=== PATIENT | female | born 1990 | race Caucasian/White ===

== ENCOUNTER 2016-06-10 15:31 | Emergency (ER) | payer BC ==
[2016-06-10] MEDS ORDERED: ONDANSETRON 4 MG TAB.RAPDIS PO ONE (16:23)
--- NOTE | 2016-06-10 16:23 | ER Document Report ---
ED Medical Screen (RME) - General Stated Complaint: UPPER ABDOMINAL PAIN Notes: patient is a 26 year old female epigastric abdominal pain, diarrhea over the course of the day tolerating PO denies GI diagnosis due for Gi follow up this coming Monday I have greeted and performed a rapid initial assessment of this patient. A comprehensive ED assessment and evaluation of the patient, analysis of test results and completion of the medical decision making process will be conducted by additional ED providers. TRAVEL OUTSIDE OF THE [place] IN LAST 30 DAYS: No - Related Data Allergies/Adverse Reactions: promethazine HCl [From Phenergan] Allergy (Verified 04/24/16 11:34) Past Medical History Pulmonary Medical History: Reports: Hx Asthma Neurological Medical History: Reports: Hx Migraine GI Medical History: Reports: Hx Gastroesophageal Reflux Disease, Hx Irritable Bowel Musculoskeltal Medical History: Reports Hx Musculoskeletal Trauma Traumatic Medical History: Reports: Hx Fractures - Immunizations Immunizations up to date: Yes Hx Diphtheria, Pertussis, Tetanus Vaccination: Yes Physical Exam - Vital signs Vitals: Temp Pulse Resp BP 98.3 F 88 20 136/80 H 06/10/16 15:55 06/10/16 15:55 06/10/16 15:55 06/10/16 15:55 Course - Vital Signs Vital signs: Temp Pulse Resp BP Pulse Ox 98.3 F 88 20 136/80 H 06/10/16 15:55 06/10/16 15:55 06/10/16 15:55 06/10/16 15:55
[2016-06-10 17:04] LABS: ABSOLUTE EOSINOPHILS # (AUTO) 0.2 10^3/uL (0.0-0.6); ABSOLUTE LYMPHOCYTES (AUTO) 2.6 10^3/uL (0.5-4.7); ABSOLUTE MONOCYTES (AUTO) 0.5 10^3/uL (0.1-1.4); ABSOLUTE NEUT (AUTO) 6.2 10^3/uL (1.7-8.2); BASOPHILS % (AUTO) 0.2 % (0-2); EOSINOPHILS % (AUTO) 2.1 % (0-6); HEMATOCRIT 40.3 % (36.0-47.0); HEMOGLOBIN 13.5 g/dL (12.0-15.5); HGB HCT DIFFERENCE 0.2; LYMPHOCYTES % (AUTO) 27.2 % (13-45); MEAN CORPUSCULAR HEMOGLOBIN 30.7 pg (27.0-33.4); MEAN CORPUSCULAR HGB CONC 33.5 g/dL (32.0-36.0); MEAN CORPUSCULAR VOLUME 92 fl (80-97); MONOCYTES % (AUTO) 5.5 % (3-13); RED BLOOD COUNT 4.39 10^6/uL (3.72-5.28); RED CELL DISTRIBUTION WIDTH 13.5 % (11.5-14.0); WHITE BLOOD COUNT 9.5 10^3/uL (4.0-10.5)
[2016-06-10 17:10] LABS: APPEARANCE,URINE SLIGHTLY-CLOUDY; BILIRUBIN,URINE NEGATIVE (NEGATIVE); GLUCOSE, URINE NEGATIVE (NEGATIVE); KETONES,URINE NEGATIVE (NEGATIVE); LEUKOCYTE ESTERASE,URINE NEGATIVE (NEGATIVE); NITRITE,URINE NEGATIVE (NEGATIVE); PROTEIN,URINE NEGATIVE (NEGATIVE); URINE SPECIFIC GRAVITY 1.017; UROBILINOGEN,URINE NEGATIVE mg/dL (<2.0)
[2016-06-10 17:17] LABS: ALANINE AMINOTRANSFERASE 171 U/L (9-52); ALBUMIN 4.7 g/dL (3.5-5.0); ALKALINE PHOSPHATASE 89 U/L (38-126); ANION GAP 11 (5-19); ASPARTATE AMINO TRANSFERASE 108 U/L (14-36); BILIRUBIN,TOTAL 0.7 mg/dL (0.2-1.3); BLOOD UREA NITROGEN 11 mg/dL (7-20); CALCIUM 9.9 mg/dL (8.4-10.2); CARBON DIOXIDE 26 mmol/L (22-30); CHLORIDE 105 mmol/L (98-107); CREATININE RESULT 0.79 mg/dL (0.52-1.25); GLUCOSE 113 mg/dL (75-110); LIPASE 106.3 U/L (23-300); POTASSIUM 4.7 mmol/L (3.6-5.0); SODIUM 141.7 mmol/L (137-145); TOTAL PROTEIN 7.8 g/dL (6.3-8.2)
--- NOTE | 2016-06-10 17:24 | ER Document Report ---
ED GI/ - General Time seen by provider: 17:18 Mode of Arrival: Ambulatory Information source: Patient TRAVEL OUTSIDE OF THE [place] IN LAST 30 DAYS: No - HPI Patient complains to provider of: Abdominal pain, Diarrhea Onset: Other - see HPI notes Location: Epigastric Associated symptoms: Diarrhea, Nausea <JERSON JOHNSTON - Last Filed: 06/10/16 17:43> <MISTY FERRER - Last Filed: 06/10/16 22:04> - General Chief Complaint: Abdominal Pain Stated Complaint: UPPER ABDOMINAL PAIN Notes: Patient is a 26-year-old female presents from her department with complaints of abdominal pain and diarrhea. Patient states that she's had diarrhea for a few weeks to 1 month; patient states her diarrhea stopped but has started again recently. Patient states that she has had intermittent sharp abdominal pain, nausea and some dizziness. Patient states that she was seen at the urgent care for some blood work and told that her liver enzymes were elevated. Patient was told to see a supervisor instrument repair. Patient denies any recent traveling or foods that could have made her ill. According to triage note patient has no appointment to see a supervisor instrument repair on Monday. Patient states that she was taking Motrin 800 mg every day, with some Zofran and Gas-X to relieve her pain; patient states this did not help much. Patient has a history of GERD and IBS. Patient is allergic to promethazine HCl. (JERSON JOHNSTON) - Related Data Allergies/Adverse Reactions: promethazine HCl [From Phenergan] Allergy (Verified 06/10/16 16:21) Past Medical History - General Information source: Patient - Social History Smoking Status: Never Smoker Cigarette use (# per day): No Chew tobacco use (# tins/day): No Frequency of alcohol use: None Drug Abuse: None Family History: CAD, COPD, CVA, Hypertension, Malignancy Patient has suicidal ideation: No Patient has homicidal ideation: No Pulmonary Medical History: Reports: Hx Asthma Neurological Medical History: Reports: Hx Migraine GI Medical History: Reports: Hx Gastroesophageal Reflux Disease, Hx Irritable Bowel Musculoskeltal Medical History: Reports Hx Musculoskeletal Trauma Traumatic Medical History: Reports: Hx Fractures Past Surgical History: Reports: None - Immunizations Immunizations up to date: Yes Hx Diphtheria, Pertussis, Tetanus Vaccination: Yes <JERSON JOHNSTON - Last Filed: 06/10/16 17:43> Review of Systems - Review of Systems Constitutional: No symptoms reported EENT: No symptoms reported Cardiovascular: No symptoms reported Respiratory: No symptoms reported Gastrointestinal: See HPI, Abdominal pain, Diarrhea, Nausea Genitourinary: No symptoms reported Female Genitourinary: No symptoms reported Musculoskeletal: No symptoms reported Skin: No symptoms reported Hematologic/Lymphatic: No symptoms reported Neurological/Psychological: No symptoms reported -: Yes All other systems reviewed and negative <JERSON JOHNSTON - Last Filed: 06/10/16 17:43> Physical Exam - Vital signs Interpretation: Normal - General General appearance: Appears well, Alert In distress: Mild - HEENT Head: Normocephalic, Atraumatic Eyes: Normal Pupils: PERRL Mucous membranes: Moist - Respiratory Respiratory status: No respiratory distress Chest status: Nontender Breath sounds: Normal Chest palpation: Normal - Cardiovascular Rhythm: Regular Heart sounds: Normal auscultation Murmur: No - Abdominal Inspection: Obese Distension: No distension Bowel sounds: Normal Tenderness: Tender - Epigastric tenderness to palpation Organomegaly: No organomegaly - Back Back: Normal, Nontender - Extremities General upper extremity: Normal inspection, Normal ROM, Normal strength General lower extremity: Normal inspection, Normal ROM, Normal strength - Neurological Neuro grossly intact: Yes Cognition: Normal Orientation: AAOx4 [place] Coma Scale Eye Opening: Spontaneous [place] Coma Scale Verbal: Oriented Kail[place] Coma Scale Motor: Obeys Commands Kailyn Coma Scale Total: 15 Speech: Normal - Psychological Associated symptoms: Normal affect, Normal mood - Skin Skin Temperature: Warm Skin Moisture: Dry <JERSON JOHNSTON - Last Filed: 06/10/16 17:43> Course - Laboratory Result Diagrams: 06/10/16 16:40 06/10/16 16:40 <JERSON JOHNSTON - Last Filed: 06/10/16 17:43> - Laboratory Result Diagrams: 06/10/16 16:40 06/10/16 16:40 - Diagnostic Test Radiology reviewed: Reports reviewed <MISTY FERRER - Last Filed: 06/10/16 22:04> - Re-evaluation Re-evalutation: 06/10/16 Patient is a 26-year-old female who came in with abdominal pain and diarrhea. Patient was also nauseated with feels better after Zofran and is currently hungry. Ultrasound within normal limits except for fatty liver. No evidence for cholecystitis. Patient does have elevation of LFTs but they're actually lower from what they were in March. Patient was taking a diet supplement and was recently told to stop it by her primary care doctor. She has been referred to GI and has a appointment on Monday. Vitals are stable. Abdomen is nontender. Stable for discharge home. Return if any worsening or concerning symptoms. Understands and agrees with plan. (MISTY FERRER) - Vital Signs Vital signs: Temp Pulse Resp BP Pulse Ox 98.2 F 81 18 127/93 H 98 06/10/16 20:22 06/10/16 20:22 06/10/16 20:22 06/10/16 20:22 06/10/16 20:22 (JERSON JOHNSTON) (MISTY FERRER) - Laboratory Laboratory results interpreted by me: 06/10/16 16:40 Glucose 113 H AST 108 H ALT 171 H (JERSON JOHNSTON) (MISTY FERRER) Discharge <JERSON JOHNSTON - Last Filed: 06/10/16 17:43> <MISTY FERRER - Last Filed: 06/10/16 22:04> - Discharge Clinical Impression: Abdominal discomfort, Elevated LFTs Diarrhea Qualifiers: Diarrhea type: unspecified type Qualified Code(s): R19.7 - Diarrhea, unspecified Condition: Stable Disposition: HOME, SELF-CARE Instructions: Abdominal Pain ([facility]), Diarrhea, Nonspecific ([facility]), Liver Function Abnormality ([facility]) Additional Instructions: Please keep your appointment with your supervisor instrument repair on Monday. Please consider keeping a food diary. Forms: Return to Work Scribe Attestation: 06/10/16 22:04 I personally performed the services described in the documentation, reviewed and edited the documentation which was dictated to the scribe in my presence, and it accurately records my words and actions. (MISTY FERRER) Scribe Documentation - Scribe Written by Scribalexander:: Jerson Johnston 06/10/16 17:45 acting as scribe for :: Anastasiia <JERSON JOHNSTON - Last Filed: 06/10/16 17:43>
[2016-06-10 20:24] VITALS: BP 127/93
== END 2016-06-10 20:22 | disposition home or self-care (01) ==
LOC: ER 15:31
DX: R10.10 Upper abdominal pain, unspecified (principal); R19.7 Diarrhea, unspecified; R11.0 Nausea; R42 Dizziness and giddiness; R79.89 Other specified abnormal findings of blood chemistry; J45.909 Unspecified asthma, uncomplicated; Z88.8 Allergy status to other drugs, medicaments and biological substances; Z87.19 Personal history of other diseases of the digestive system
CPT/HCPCS: 99284; 36415; 83690; 85025; 81025; 80053; 81001; 80074; 76705; S0119

== ENCOUNTER 2016-06-19 05:39 | Emergency (ER) | payer BC ==
[2016-06-19] MEDS ORDERED: ONDANSETRON HCL INJ/PF 4 MG/2 ML SDV IV ONE (05:44)
[2016-06-19] MEDS ORDERED: MORPHINE SULFATE 10 MG/ML INJ IV ONE (05:44)
[2016-06-19] MEDS ORDERED: NORMAL SALINE 1000 ML 1,000 ML IV ONE ×2 (05:45→08:33)
[2016-06-19 06:24] LABS: ABSOLUTE BASOPHILS # (AUTO) 0.1 10^3/uL (0.0-0.2); ABSOLUTE EOSINOPHILS # (AUTO) 0.2 10^3/uL (0.0-0.6); ABSOLUTE LYMPHOCYTES (AUTO) 1.9 10^3/uL (0.5-4.7); ABSOLUTE MONOCYTES (AUTO) 0.5 10^3/uL (0.1-1.4); ABSOLUTE NEUT (AUTO) 4.8 10^3/uL (1.7-8.2); BASOPHILS % (AUTO) 0.8 % (0-2); EOSINOPHILS % (AUTO) 2.2 % (0-6); HEMATOCRIT 38.6 % (36.0-47.0); HEMOGLOBIN 13.1 g/dL (12.0-15.5); HGB HCT DIFFERENCE 0.7; MEAN CORPUSCULAR HEMOGLOBIN 30.9 pg (27.0-33.4); MEAN CORPUSCULAR VOLUME 91 fl (80-97); MONOCYTES % (AUTO) 6.7 % (3-13); RED BLOOD COUNT 4.25 10^6/uL (3.72-5.28); RED CELL DISTRIBUTION WIDTH 13.5 % (11.5-14.0); SEGMENTED NEUTROPHILS % (AUTO) 64.3 % (42-78); WHITE BLOOD COUNT 7.4 10^3/uL (4.0-10.5)
[2016-06-19 06:43] LABS: ALANINE AMINOTRANSFERASE 129 U/L (9-52); ALBUMIN 4.1 g/dL (3.5-5.0); ALKALINE PHOSPHATASE 85 U/L (38-126); ANION GAP 13 (5-19); ASPARTATE AMINO TRANSFERASE 92 U/L (14-36); BILIRUBIN,TOTAL 0.7 mg/dL (0.2-1.3); BLOOD UREA NITROGEN 15 mg/dL (7-20); CALCIUM 9.8 mg/dL (8.4-10.2); CARBON DIOXIDE 22 mmol/L (22-30); CHLORIDE 106 mmol/L (98-107); CREATININE RESULT 0.71 mg/dL (0.52-1.25); GLUCOSE 135 mg/dL (75-110); LIPASE 86.2 U/L (23-300); POTASSIUM 4.5 mmol/L (3.6-5.0); SODIUM 140.6 mmol/L (137-145); TOTAL PROTEIN 7.3 g/dL (6.3-8.2)
[2016-06-19 07:33] LABS: APPEARANCE,URINE CLEAR; BILIRUBIN,URINE NEGATIVE (NEGATIVE); GLUCOSE, URINE NEGATIVE (NEGATIVE); KETONES,URINE NEGATIVE (NEGATIVE); LEUKOCYTE ESTERASE,URINE NEGATIVE (NEGATIVE); NITRITE,URINE NEGATIVE (NEGATIVE); PROTEIN,URINE NEGATIVE (NEGATIVE); URINE SPECIFIC GRAVITY 1.019; UROBILINOGEN,URINE NEGATIVE mg/dL (<2.0)
[2016-06-19] MEDS ORDERED: METOCLOPRAMIDE HCL INJ/PF 10 MG/2 ML SDV IV ONE (07:41)
[2016-06-19] MEDS ORDERED: DIPHENHYDRAMINE HCL 50 MG/ML VIAL IV ONE (07:41)
[2016-06-19 07:48] LABS: URINE BARBITURATES SCREEN NEGATIVE; URINE METHADONE SCREEN NEGATIVE; URINE OPIATES LOW UNCONFIRMED POSITIVE; URINE PHENCYCLIDINE SCREEN NEGATIVE
[2016-06-19 10:17] LABS: CHLAM PCR NOT DETECTED (NOT DETECT)
--- NOTE | 2016-06-19 10:35 | ER Document Report ---
ED General - General Chief Complaint: Flank Pain Stated Complaint: RIGHT FLANK PAIN TRAVEL OUTSIDE OF THE [place] IN LAST 30 DAYS: No - HPI Patient complains to provider of: right flank pain Notes: Patient coming in for evaluation of right flank pain starting earlier this morning. Patient states his a history shooting pain associated with nausea vomiting. Patient states developing this before. Patient denies any fevers chills nausea vomiting. Patient also complains of vaginal discharge. Upon my evaluation patient received morphine is resting currently still states that she feels nauseous. - Related Data Allergies/Adverse Reactions: promethazine HCl [From Phenergan] Allergy (Verified 06/10/16 16:21) Past Medical History - Social History Smoking Status: Unknown if Ever Smoked Family History: CAD, COPD, CVA, Hypertension, Malignancy Pulmonary Medical History: Reports: Hx Asthma Neurological Medical History: Reports: Hx Migraine Renal/ Medical History: Denies: Hx Peritoneal Dialysis GI Medical History: Reports: Hx Gastroesophageal Reflux Disease, Hx Irritable Bowel Musculoskeltal Medical History: Reports Hx Musculoskeletal Trauma Traumatic Medical History: Reports: Hx Fractures - Immunizations Immunizations up to date: Yes Hx Diphtheria, Pertussis, Tetanus Vaccination: Yes Review of Systems - Review of Systems Constitutional: No symptoms reported EENT: No symptoms reported Cardiovascular: No symptoms reported Respiratory: No symptoms reported Gastrointestinal: Nausea, Vomiting Genitourinary: Flank pain Female Genitourinary: No symptoms reported Musculoskeletal: No symptoms reported Skin: No symptoms reported Hematologic/Lymphatic: No symptoms reported Neurological/Psychological: No symptoms reported -: Yes All other systems reviewed and negative Physical Exam - Vital signs Vitals: Temp Pulse Resp BP Pulse Ox 97.6 F 87 22 H 140/91 H 99 06/19/16 05:39 06/19/16 05:39 06/19/16 05:39 06/19/16 05:39 06/19/16 05:39 Interpretation: Normal - General General appearance: Appears well, Alert - HEENT Head: Normocephalic, Atraumatic Eyes: Normal Pupils: PERRL - Respiratory Respiratory status: No respiratory distress Chest status: Nontender Breath sounds: Normal Chest palpation: Normal - Cardiovascular Rhythm: Regular Heart sounds: Normal auscultation Murmur: No - Abdominal Inspection: Normal Distension: No distension Bowel sounds: Normal Tenderness: Nontender Organomegaly: No organomegaly - Back Back: Normal, Nontender - Extremities General upper extremity: Normal inspection, Nontender, Normal color, Normal ROM , Normal temperature General lower extremity: Normal inspection, Nontender, Normal color, Normal ROM , Normal temperature, Normal weight bearing. No: Tash's sign - Neurological Neuro grossly intact: Yes Cognition: Normal Orientation: AAOx4 Kail[place] Coma Scale Eye Opening: Spontaneous [place] Coma Scale Verbal: Oriented [place] Coma Scale Motor: Obeys Commands [place] Coma Scale Total: 15 Speech: Normal Motor strength normal: LUE, RUE, LLE, RLE Sensory: Normal - Psychological Associated symptoms: Normal affect, Normal mood - Skin Skin Temperature: Warm Skin Moisture: Dry Skin Color: Normal Course - Re-evaluation Re-evalutation: 06/19/16 14:[address] scan evaluate for kidney stone did have some hematuria and flank pain. This was negative. Otherwise patient's lab work is negative. Possibly ureteral spasm clonic spasm unclear etiology the patient's pain no signs of surgical pathology at this time no signs of infectious pathology. Patient will be discharged home follow-up primary care physician. - Vital Signs Vital signs: Temp Pulse Resp BP Pulse Ox 98.1 F 87 16 113/61 100 06/19/16 11:00 06/19/16 11:00 06/19/16 11:00 06/19/16 11:00 06/19/16 11:00 - Laboratory Result Diagrams: 06/19/16 06:00 06/19/16 06:00 Laboratory results interpreted by me: 06/19/16 06/19/16 06:00 07:12 Glucose 135 H AST 92 H ALT 129 H Urine Blood LARGE H Discharge - Discharge Clinical Impression: Right flank pain Condition: Good Disposition: HOME, SELF-CARE Instructions: Abdominal Pain ([facility]), Flank Pain ([facility]) Additional Instructions: Take medication as prescribed. Follow-up with your primary care physician for further evaluation. At this time a CT scan is negative for any acute pathology. Your laboratory also shows no signs of infection there is a slight amount of blood in your urine which may be due to beginning of your initial cycle. Is very important she follow-up with your primary care physician. Prescriptions: Ondansetron [Zofran Odt 4 mg Tablet] 4 mg PO Q4HP PRN #30 tab.rapdis PRN Reason: Dicyclomine HCl [Bentyl 20 mg Tablet] 20 mg PO QID #40 tablet Referrals: ANA RAMIREZ, [Primary Care Provider] - Follow up as needed
[2016-06-19 11:24] VITALS: BP 113/61
== END 2016-06-19 11:00 | disposition home or self-care (01) ==
LOC: ER 05:39
DX: R10.9 Unspecified abdominal pain (principal); R11.2 Nausea with vomiting, unspecified
CPT/HCPCS: 99284; 96361; 51701; 96374; 96375; 36415; 87210; 83690; 84703; 85025; 80053; 81001; 80307; 87491; 87591; 76380; J1200; J2765; J2270; J2405; J7030

== ENCOUNTER 2016-07-28 18:32 | Emergency (ER) | payer BC ==
--- NOTE | 2016-07-28 18:57 | ER Document Report ---
ED Medical Screen (RME) - General Stated Complaint: CHEST PAIN Time seen by provider: 18:54 Mode of Arrival: Ambulatory Information source: Patient Notes: 26-year-old female presents to ED for complain of left-sided chest pain. She also complains of right arm and leg numbness states she can barely grab anything with her right hand. She states that she feels like her skin is on fire sunburn but she is not sunburn. Right arm hurts to move or extend her arm. Last menstrual period 07/22/2016. 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 States her vision is been messed up today. Denies history of diabetes. I have greeted and performed a rapid initial assessment of this patient. A comprehensive ED assessment and evaluation of the patient, analysis of test results and completion of medical decision making process will be conducted by an additional ED providers. TRAVEL OUTSIDE OF THE [place] IN LAST 30 DAYS: No - Related Data Allergies/Adverse Reactions: promethazine HCl [From Phenergan] Allergy (Verified 06/10/16 16:21) Past Medical History Pulmonary Medical History: Reports: Hx Asthma Neurological Medical History: Reports: Hx Migraine Renal/ Medical History: Denies: Hx Peritoneal Dialysis GI Medical History: Reports: Hx Gastroesophageal Reflux Disease, Hx Irritable Bowel Musculoskeltal Medical History: Reports Hx Musculoskeletal Trauma Traumatic Medical History: Reports: Hx Fractures - Immunizations Immunizations up to date: Yes Hx Diphtheria, Pertussis, Tetanus Vaccination: Yes
[2016-07-28] MEDS ORDERED: ASPIRIN 81 MG TABLET, CHEWABLE PO ONE (18:58)
[2016-07-28 19:26] LABS: ABSOLUTE EOSINOPHILS # (AUTO) 0.2 10^3/uL (0.0-0.6); ABSOLUTE LYMPHOCYTES (AUTO) 2.6 10^3/uL (0.5-4.7); ABSOLUTE MONOCYTES (AUTO) 0.5 10^3/uL (0.1-1.4); ABSOLUTE NEUT (AUTO) 7.9 10^3/uL (1.7-8.2); BASOPHILS % (AUTO) 0.3 % (0-2); EOSINOPHILS % (AUTO) 1.7 % (0-6); HEMATOCRIT 40.5 % (36.0-47.0); HEMOGLOBIN 13.6 g/dL (12.0-15.5); HGB HCT DIFFERENCE 0.3; LYMPHOCYTES % (AUTO) 23.1 % (13-45); MEAN CORPUSCULAR HEMOGLOBIN 30.3 pg (27.0-33.4); MEAN CORPUSCULAR HGB CONC 33.7 g/dL (32.0-36.0); MEAN CORPUSCULAR VOLUME 90 fl (80-97); MONOCYTES % (AUTO) 4.7 % (3-13); SEGMENTED NEUTROPHILS % (AUTO) 70.2 % (42-78); WHITE BLOOD COUNT 11.2 10^3/uL (4.0-10.5)
[2016-07-28 19:42] LABS: ALANINE AMINOTRANSFERASE 100 U/L (9-52); ALBUMIN 4.8 g/dL (3.5-5.0); ALKALINE PHOSPHATASE 102 U/L (38-126); ANION GAP 13 (5-19); ASPARTATE AMINO TRANSFERASE 75 U/L (14-36); BILIRUBIN,DIRECT 0.2 mg/dL (0.0-0.4); BILIRUBIN,TOTAL 0.5 mg/dL (0.2-1.3); BLOOD UREA NITROGEN 13 mg/dL (7-20); CALCIUM 10.3 mg/dL (8.4-10.2); CARBON DIOXIDE 28 mmol/L (22-30); CHLORIDE 104 mmol/L (98-107); CREATINE KINASE 93 U/L (30-135); CREATININE RESULT 0.84 mg/dL (0.52-1.25); GLUCOSE 81 mg/dL (75-110); MAGNESIUM 1.9 mg/dL (1.6-2.3); POTASSIUM 4.1 mmol/L (3.6-5.0); PROTHROMBIN TIME 12.8 SEC (11.4-15.4); SODIUM 144.7 mmol/L (137-145); TOTAL PROTEIN 7.8 g/dL (6.3-8.2)
[2016-07-28 19:43] LABS: PARTIAL THROMBOPLASTIN TIME 29.7 SEC (23.5-35.8)
[2016-07-28 19:54] LABS: CREATINE KINASE MB 0.28 ng/mL (<4.55)
[2016-07-28 19:55] LABS: TROPONIN I < 0.012 ng/mL
[2016-07-28] MEDS ORDERED: BUTALB/ACETAMINOPHEN/CAFFEINE 1 TAB EACH PO ONE (20:43)
--- NOTE | 2016-07-28 20:43 | ER Document Report ---
ED General - General Chief Complaint: Chest Pain Stated Complaint: CHEST PAIN Mode of Arrival: Ambulatory Notes: Patient is a 26-year-old female with frequent recurring chest pain presents with concerns of left-sided chest pain and pain in her left arm. Does describe the pain as a dull, throbbing, constant pain. Nothing improves her pain. States moving the left arm worsens the pain in both her arm and chest. States this feels very similar to prior episodes of chest pain and diagnosed as benign recurrent chest discomfort. She has not seen her primary care doctor regarding today's concerns. She denies any associated nausea, vomiting, diaphoresis or shortness of breath. No history of DVT or pulmonary embolus. She does not use estrogen. TRAVEL OUTSIDE OF THE [place] IN LAST 30 DAYS: No - Related Data Allergies/Adverse Reactions: omeprazole Allergy (Verified 07/28/16 18:55) promethazine HCl [From Phenergan] Allergy (Verified 07/28/16 18:54) Past Medical History - General Information source: Patient - Social History Smoking Status: Never Smoker Chew tobacco use (# tins/day): No Frequency of alcohol use: None Drug Abuse: None Lives with: Spouse/Significant other Family History: CAD, COPD, CVA, Hypertension, Malignancy Patient has suicidal ideation: No Patient has homicidal ideation: No Pulmonary Medical History: Reports: Hx Asthma Neurological Medical History: Reports: Hx Migraine Renal/ Medical History: Denies: Hx Peritoneal Dialysis GI Medical History: Reports: Hx Gastroesophageal Reflux Disease, Hx Irritable Bowel Musculoskeltal Medical History: Reports Hx Musculoskeletal Trauma Traumatic Medical History: Reports: Hx Fractures - Immunizations Immunizations up to date: Yes Hx Diphtheria, Pertussis, Tetanus Vaccination: Yes Review of Systems - Review of Systems Notes: Constitutional: Negative for fever. HENT: Negative for sore throat. Eyes: Negative for visual changes. Cardiovascular: Positive for chest pain. Respiratory: Negative for shortness of breath. Gastrointestinal: Negative for abdominal pain, vomiting or diarrhea. Genitourinary: Negative for dysuria. Musculoskeletal: Positive for left shoulder pain Skin: Negative for rash. Neurological: Negative for headaches, weakness or numbness. 10 point ROS negative except as marked above and in HPI. Physical Exam - Vital signs Vitals: Temp Pulse Resp BP Pulse Ox 97.8 F 79 15 129/93 H 96 07/28/16 21:25 07/28/16 21:25 07/28/16 21:25 07/28/16 21:25 07/28/16 21:25 Interpretation: Normal Notes: PHYSICAL EXAMINATION: GENERAL: Well-appearing, well-nourished and in no acute distress. HEAD: Atraumatic, normocephalic. EYES: Pupils equal round and reactive to light, extraocular movements intact, sclera anicteric, conjunctiva are normal. ENT: nares patent, oropharynx clear without exudates. Moist mucous membranes. NECK: Normal range of motion, supple without lymphadenopathy LUNGS: Breath sounds clear to auscultation bilaterally and equal. No wheezes rales or rhonchi. HEART: Regular rate and rhythm without murmurs ABDOMEN: Soft, nontender, normoactive bowel sounds. No guarding, no rebound. No masses appreciated. EXTREMITIES: No reproduction of the left shoulder and forearm pain as well as the pain over the left chest with abduction and internal rotation of the left shoulder NEUROLOGICAL: No focal neurological deficits. Moves all extremities spontaneously and on command. PSYCH: Normal mood, normal affect. SKIN: Warm, Dry, normal turgor, no rashes or lesions noted. Course - Re-evaluation Re-evalutation: 07/28/16 20:40 Patient presents with multiple vague complaints that did not appear to be concerning for any acute life-threatening pathology. Vitals are within normal limits at triage and at time of discharge. Physical examination is unremarkable. Patient has tolerated oral intake without difficulty. Patient was not noted to be in distress at any point during their ER visit. At this time, based on the reassuring evaluation, I do not suspect an acute AR, pulmonary embolus, aortic dissection, acute intra-abdominal pathology, stroke, or sepsis.Will discharge with return precautions and follow-up recommendations. Verbal discharge instructions given a the bedside and opportunity for questions given. Medication warnings reviewed. Patient is in agreement with this plan and has verbalized understanding of return precautions and the need for primary care follow-up in the next 24-72 hours. - Vital Signs Vital signs: Temp Pulse Resp BP Pulse Ox 97.8 F 79 15 129/93 H 96 07/28/16 21:25 07/28/16 21:25 07/28/16 21:25 07/28/16 21:25 07/28/16 21:25 - Laboratory Result Diagrams: 07/28/16 19:10 07/28/16 19:10 Laboratory results interpreted by me: 07/28/16 07/28/16 19:10 19:10 WBC 11.2 H Calcium 10.3 H AST 75 H ALT 100 H - Diagnostic Test Radiology reviewed: Image reviewed, Reports reviewed Radiology results interpreted by me: 07/28/16 20:41 Chest x-ray: No acute infiltrate - EKG Interpretation by Me Additional EKG results interpreted by me: 07/28/16 20:41 Normal sinus rhythm. Rate 83. No ST elevations or depressions. QTC is 437. Discharge - Discharge Clinical Impression: Skin sensitivity Headache Qualifiers: Headache type: unspecified Headache chronicity pattern: acute headache Intractability: not intractable Qualified Code(s): R51 - Headache Condition: Good Disposition: HOME, SELF-CARE Additional Instructions: Please return to the emergency room immediately if you experience any concerning symptoms including high fevers, severe headache, chest pain, difficulty breathing, abdominal pain, slurred speech, numbness or weakness in your arms or legs, or any other symptom that concerns you. Prescriptions: Butalb/Acetaminophen/Caffeine [Fioricet (50-325-40 mg) Tablet] 1 - 2 tab PO Q4H #20 tab
--- NOTE | 2016-07-28 20:58 | EKG REPORT ---
SEVERITY:- NORMAL ECG - SINUS RHYTHM : Confirmed by: Willow Salas 28-Jul-2016 20:57:16
[2016-07-28 21:27] VITALS: BP 129/93
== END 2016-07-28 21:25 | disposition home or self-care (01) ==
LOC: ER 18:32
DX: R51 Headache (principal); R07.9 Chest pain, unspecified; M79.602 Pain in left arm
CPT/HCPCS: 93005; 99285; 36415; 82553; 82550; 83735; 84443; 84703; 85025; 85610; 85730; 80053; 84484; 71020; 93010; J3490

== ENCOUNTER 2017-06-18 15:06 | Emergency (ER) | payer BC ==
[2017-06-18] MEDS ORDERED: NORMAL SALINE 1000 ML 1,000 ML IV ONE (16:27)
--- NOTE | 2017-06-18 16:27 | ER Document Report ---
ED General - General Chief Complaint: Vag Bleeding, +preg <12wks Stated Complaint: VAGINAL BLEEDING Time Seen by Provider: 06/18/17 16:23 TRAVEL OUTSIDE OF THE [place] IN LAST 30 DAYS: No - Related Data Allergies/Adverse Reactions: omeprazole Allergy (Verified 07/28/16 18:55) promethazine HCl [From Phenergan] Allergy (Verified 07/28/16 18:54) Past Medical History - Social History Smoking Status: Current Every Day Smoker Chew tobacco use (# tins/day): - 15 Frequency of alcohol use: None Drug Abuse: None Family History: CAD, COPD, CVA, Hypertension, Malignancy Patient has suicidal ideation: No Patient has homicidal ideation: No Pulmonary Medical History: Reports: Hx Asthma Neurological Medical History: Reports: Hx Migraine Renal/ Medical History: Denies: Hx Peritoneal Dialysis GI Medical History: Reports: Hx Gastroesophageal Reflux Disease, Hx Irritable Bowel Musculoskeltal Medical History: Reports Hx Musculoskeletal Trauma Traumatic Medical History: Reports: Hx Fractures - Immunizations Immunizations up to date: Yes Hx Diphtheria, Pertussis, Tetanus Vaccination: Yes Physical Exam - Vital signs Vitals: Temp Pulse Resp BP Pulse Ox 98.7 F 89 17 120/84 97 06/18/17 15:15 06/18/17 15:15 06/18/17 15:15 06/18/17 15:15 06/18/17 15:15 Course - Vital Signs Vital signs: Temp Pulse Resp BP Pulse Ox 98.7 F 89 17 120/84 97 06/18/17 15:15 06/18/17 15:15 06/18/17 15:15 06/18/17 15:15 06/18/17 15:15
--- NOTE | 2017-06-18 16:28 | ER Document Report ---
ED Medical Screen (RME) - General Chief Complaint: Vag Bleeding, +preg <12wks Stated Complaint: VAGINAL BLEEDING Time Seen by Provider: 06/18/17 16:23 Mode of Arrival: Ambulatory Information source: Patient Notes: 27 yr old female 9 weeks who had a medically induced abx with cytotec presents with complaints of heavy bleeding I have greeted and performed a rapid initial assessment of this patient. A comprehensive ED assessment and evaluation of the patient, analysis of test results and completion of the medical decision making process will be conducted by additional ED providers. PHYSICAL EXAMINATION: GENERAL: Well-appearing, well-nourished and in no acute distress. HEAD: Atraumatic, normocephalic. EYES: Pupils equal round extraocular movements intact, conjunctiva are normal. ENT: Nares patent NECK: Normal range of motion LUNGS: No respiratory distress Musculoskeletal: Normal range of motion NEUROLOGICAL: Normal speech, normal gait. PSYCH: Normal mood, normal affect. SKIN: Warm, Dry, normal turgor, no rashes or lesions noted. TRAVEL OUTSIDE OF THE [place] IN LAST 30 DAYS: No - Related Data Allergies/Adverse Reactions: omeprazole Allergy (Verified 07/28/16 18:55) promethazine HCl [From Phenergan] Allergy (Verified 07/28/16 18:54) Past Medical History - Social History Chew tobacco use (# tins/day): - 15 Frequency of alcohol use: None Drug Abuse: None Pulmonary Medical History: Reports: Hx Asthma Neurological Medical History: Reports: Hx Migraine Renal/ Medical History: Denies: Hx Peritoneal Dialysis GI Medical History: Reports: Hx Gastroesophageal Reflux Disease, Hx Irritable Bowel Musculoskeltal Medical History: Reports Hx Musculoskeletal Trauma Traumatic Medical History: Reports: Hx Fractures - Immunizations Immunizations up to date: Yes Hx Diphtheria, Pertussis, Tetanus Vaccination: Yes Physical Exam - Vital signs Vitals: Temp Pulse Resp BP Pulse Ox 98.7 F 89 17 120/84 97 06/18/17 15:15 06/18/17 15:15 06/18/17 15:15 06/18/17 15:15 06/18/17 15:15 Course - Vital Signs Vital signs: Temp Pulse Resp BP Pulse Ox 98.7 F 89 17 120/84 97 06/18/17 15:15 06/18/17 15:15 06/18/17 15:15 06/18/17 15:15 06/18/17 15:15
--- NOTE | 2017-06-18 17:52 | ER Document Report ---
ED General - General Chief Complaint: Vag Bleeding, +preg <12wks Stated Complaint: VAGINAL BLEEDING Time Seen by Provider: 06/18/17 16:23 Mode of Arrival: Ambulatory Information source: Patient, Relative TRAVEL OUTSIDE OF THE [place] IN LAST 30 DAYS: No - HPI Notes: A 27-year-old female presents today who is 9 weeks with complaints of heavy vaginal bleeding after she had a medically induced today with cytotec per decision of patient. No noted issues with . She had procedure done at a woman[facility] clinic in [facility]. Reports she is gone through 1 pad an hour. Eating and drinking without issues. Denies fevers , chills, chest pain, shortness of breath, nausea, vomiting, diarrhea, abdominal pain, hematuria, vaginal pain, pelvic pain, blurred vision, double vision, loss of vision, syncope, headaches, neck pain, weakness, bowel or bladder dysfunction, saddle anesthesia or rash - Related Data Allergies/Adverse Reactions: omeprazole Allergy (Verified 07/28/16 18:55) promethazine HCl [From Phenergan] Allergy (Verified 07/28/16 18:54) Past Medical History - General Information source: Patient - Social History Smoking Status: Current Every Day Smoker Chew tobacco use (# tins/day): - 15 Frequency of alcohol use: None Drug Abuse: None Family History: CAD, COPD, CVA, Hypertension, Malignancy Patient has suicidal ideation: No Patient has homicidal ideation: No Pulmonary Medical History: Reports: Hx Asthma Neurological Medical History: Reports: Hx Migraine Renal/ Medical History: Denies: Hx Peritoneal Dialysis GI Medical History: Reports: Hx Gastroesophageal Reflux Disease, Hx Irritable Bowel Musculoskeltal Medical History: Reports Hx Musculoskeletal Trauma Traumatic Medical History: Reports: Hx Fractures - Immunizations Immunizations up to date: Yes Hx Diphtheria, Pertussis, Tetanus Vaccination: Yes Review of Systems - Review of Systems Constitutional: No symptoms reported EENT: No symptoms reported Cardiovascular: No symptoms reported Respiratory: No symptoms reported Gastrointestinal: No symptoms reported Genitourinary: See HPI Female Genitourinary: No symptoms reported Musculoskeletal: No symptoms reported Skin: No symptoms reported Hematologic/Lymphatic: No symptoms reported Neurological/Psychological: No symptoms reported Physical Exam - Vital signs Vitals: Temp Pulse Resp BP Pulse Ox 98.7 F 89 17 120/84 97 02/18/18 15:15 06/18/17 15:15 06/18/17 15:15 06/18/17 15:15 06/18/17 15:15 - Notes Notes: PHYSICAL EXAMINATION: GENERAL: Well-appearing, well-nourished and in no acute distress. HEAD: Atraumatic, normocephalic. EYES: Pupils equal round and reactive to light, extraocular movements intact, conjunctiva are normal. ENT: Nares patent, oropharynx clear without exudates. Moist mucous membranes. NECK: Normal range of motion, supple without lymphadenopathy LUNGS: Breath sounds clear to auscultation bilaterally and equal. No wheezes rales or rhonchi. HEART: Regular rate and rhythm without murmurs ABDOMEN: Soft, nontender, nondistended abdomen. No guarding, no rebound. No masses appreciated. Female : deferred Musculoskeletal: Normal range of motion, no pitting or edema. No cyanosis. NEUROLOGICAL: Cranial nerves grossly intact. Normal speech, normal gait. Normal sensory, motor exams PSYCH: Normal mood, normal affect. SKIN: Warm, Dry, normal turgor, no rashes or lesions noted. Course - Re-evaluation Re-evalutation: 06/18/17 18:05 Rechecked the patient who is resting comfortably. On re-exam, patient is symptomatically improved. Discussed the results of the labs as well as the diagnosis at great length. H&H negative for any anemia. No leukocytosis noted. CBC unremarkable overall advised to follow-up with [facility] within 24 hours or return to the emergency room. Continue using sanitary napkins; discussed the need to return to the ER for any new or worsening sx. Patient understands to take the Rx as directed. All questions answered. Patient comfortable with the decision to go home. After performing a Medical Screening Examination, I estimate there is LOW risk for ACUTE APPENDICITIS, BOWEL OBSTRUCTION, ACUTE CHOLECYSTITIS, PERFORATED DIVERTICULITIS, INCARCERATED HERNIA, PANCREATITIS, PELVIC INFLAMMATORY DISEASE, PERFORATED ULCER, ECTOPIC , or TUBO-OVARIAN ABSCESS, thus I consider the discharge disposition reasonable. Also, there is no evidence or peritonitis , sepsis, or toxicity. I have reevaluated this patient multiple times and no significant life threatening changes are noted. The patient and I have discussed the diagnosis and risks, and we agree with discharging home with close follow-up with the understanding that symptoms and presentations can change. We also discussed returning to the Emergency Department immediately if new or worsening symptoms occur. We have discussed the symptoms which are most concerning (e.g., bloody stool, fever, changing or worsening pain, vomiting) that necessitate immediate return. - Vital Signs Vital signs: Temp Pulse Resp BP Pulse Ox 97.4 F 80 17 123/80 100 06/18/17 19:25 06/18/17 19:25 06/18/17 15:15 06/18/17 19:25 06/18/17 19:25 - Laboratory Result Diagrams: 06/18/17 17:50 06/18/17 17:50 Laboratory results interpreted by me: 06/18/17 17:50 WBC 11.1 H Absolute Neutrophils 8.5 H Discharge - Discharge Clinical Impression: Vaginal bleeding Condition: Good Disposition: HOME, SELF-CARE Instructions: Miscarriage ([facility]), Vaginal Bleeding ([facility]) Additional Instructions: Return immediately for any new or worsening symptoms. Follow up with primary care provider, call tomorrow to make followup appointment. Referrals: RONALD RUIZ MD [ACTIVE STAFF] - Follow up tomorrow
[2017-06-18 18:21] LABS: ABSOLUTE EOSINOPHILS # (AUTO) 0.1 10^3/uL (0.0-0.6); ABSOLUTE LYMPHOCYTES (AUTO) 1.9 10^3/uL (0.5-4.7); ABSOLUTE MONOCYTES (AUTO) 0.5 10^3/uL (0.1-1.4); ABSOLUTE NEUT (AUTO) 8.5 10^3/uL (1.7-8.2); BASOPHILS % (AUTO) 0.3 % (0-2); EOSINOPHILS % (AUTO) 0.6 % (0-6); HEMATOCRIT 36.6 % (36.0-47.0); HEMOGLOBIN 12.2 g/dL (12.0-15.5); LYMPHOCYTES % (AUTO) 17.3 % (13-45); MEAN CORPUSCULAR HEMOGLOBIN 29.6 pg (27.0-33.4); MEAN CORPUSCULAR HGB CONC 33.4 g/dL (32.0-36.0); MEAN CORPUSCULAR VOLUME 89 fl (80-97); MONOCYTES % (AUTO) 4.8 % (3-13); PLATELET COUNT 220 10^3/uL (150-450); RED BLOOD COUNT 4.13 10^6/uL (3.72-5.28); RED CELL DISTRIBUTION WIDTH 13.6 % (11.5-14.0); TOTAL CELLS COUNTED % (AUTO) 100 %; WHITE BLOOD COUNT 11.1 10^3/uL (4.0-10.5)
[2017-06-18 19:27] VITALS: BP 123/80
== END 2017-06-18 19:30 | disposition home or self-care (01) ==
LOC: ER 15:06
DX: O46.91 Antepartum hemorrhage, unspecified, first trimester (principal); Z3A.09 9 weeks gestation of pregnancy; F17.200 Nicotine dependence, unspecified, uncomplicated
CPT/HCPCS: 99284; 96360; 36415; 85025; J7030

== ENCOUNTER 2018-03-08 11:14 | Emergency (ER) | payer BC ==
--- NOTE | 2018-03-08 12:51 | ER Document Report ---
ED Medical Screen (RME) - General Chief Complaint: Chest Pain > 30 Stated Complaint: ACCELERATED HEART RATE Time Seen by Provider: 03/08/18 12:50 Notes: 28 years old female who is 26 weeks presents today episode of palpitation and sensation of heart beating faster. No chest pain. She was a former smoker stopped smoking for 26 weeks. No coronary artery disease. EKG is normal appears comfortable TRAVEL OUTSIDE OF THE [place] IN LAST 30 DAYS: No - Related Data Allergies/Adverse Reactions: omeprazole Allergy (Verified 03/08/18 11:28) promethazine HCl [From Phenergan] Allergy (Verified 03/08/18 11:28) Past Medical History Pulmonary Medical History: Reports: Hx Asthma Neurological Medical History: Reports: Hx Migraine Renal/ Medical History: Denies: Hx Peritoneal Dialysis GI Medical History: Reports: Hx Gastroesophageal Reflux Disease, Hx Irritable Bowel Musculoskeltal Medical History: Reports Hx Musculoskeletal Trauma Traumatic Medical History: Reports: Hx Fractures - Immunizations Immunizations up to date: Yes Hx Diphtheria, Pertussis, Tetanus Vaccination: Yes Physical Exam - Vital signs Vitals: Temp Pulse Resp BP Pulse Ox 98.8 F 109 H 16 120/79 98 03/08/18 11:41 03/08/18 11:41 03/08/18 11:41 03/08/18 11:41 03/08/18 11:41 Course - Vital Signs Vital signs: Temp Pulse Resp BP Pulse Ox 98.8 F 109 H 16 120/79 98 03/08/18 11:41 03/08/18 11:41 03/08/18 11:41 03/08/18 11:41 03/08/18 11:41
--- NOTE | 2018-03-08 12:59 | EKG REPORT ---
SEVERITY:- NORMAL ECG - SINUS RHYTHM : Confirmed by: Juancho Love MD 08-Mar-2018 12:58:08
[2018-03-08 13:12] LABS: ABSOLUTE EOSINOPHILS # (AUTO) 0.1 10^3/uL (0.0-0.6); ABSOLUTE LYMPHOCYTES (AUTO) 1.4 10^3/uL (0.5-4.7); ABSOLUTE MONOCYTES (AUTO) 0.5 10^3/uL (0.1-1.4); ABSOLUTE NEUT (AUTO) 8.6 10^3/uL (1.7-8.2); BASOPHILS % (AUTO) 0.1 % (0-2); EOSINOPHILS % (AUTO) 0.6 % (0-6); HEMATOCRIT 34.3 % (36.0-47.0); HEMOGLOBIN 11.6 g/dL (12.0-15.5); LYMPHOCYTES % (AUTO) 12.9 % (13-45); MEAN CORPUSCULAR HEMOGLOBIN 29.8 pg (27.0-33.4); MEAN CORPUSCULAR HGB CONC 33.9 g/dL (32.0-36.0); MEAN CORPUSCULAR VOLUME 88 fl (80-97); PLATELET COUNT 229 10^3/uL (150-450); RED CELL DISTRIBUTION WIDTH 14.7 % (11.5-14.0); SEGMENTED NEUTROPHILS % (AUTO) 81.4 % (42-78); TOTAL CELLS COUNTED % (AUTO) 100 %; WHITE BLOOD COUNT 10.6 10^3/uL (4.0-10.5)
[2018-03-08 13:30] LABS: ALANINE AMINOTRANSFERASE 42 U/L (9-52); ALKALINE PHOSPHATASE 114 U/L (38-126); ANION GAP 17 (5-19); ASPARTATE AMINO TRANSFERASE 73 U/L (14-36); BILIRUBIN,DIRECT 0.2 mg/dL (0.0-0.4); BILIRUBIN,TOTAL 0.5 mg/dL (0.2-1.3); BLOOD UREA NITROGEN 8 mg/dL (7-20); CARBON DIOXIDE 19 mmol/L (22-30); CHLORIDE 103 mmol/L (98-107); GLUCOSE 89 mg/dL (75-110); POTASSIUM 4.5 mmol/L (3.6-5.0); SODIUM 138.7 mmol/L (137-145)
--- NOTE | 2018-03-08 13:45 | ER Document Report ---
ED General - General Chief Complaint: Chest Pain > 30 Stated Complaint: ACCELERATED HEART RATE Time Seen by Provider: 03/08/18 12:50 Mode of Arrival: Ambulatory Information source: Patient, [facility] Records Notes: 28-year-old female with asthma, GERD, irritable bowel presents with complaint of palpitations that started just prior to arrival while at rest. Patient states that she was laying in bed when she felt her heart pounding and her chest tighten. She said chest tightness resolved within a few seconds but her palpitations continued. She was evaluated by EMS and reports that upon their arrival she was hyperventilating. Patient was then seen by her [employer] INSTALLER who assessed the baby, and sent her to the emergency department. Patient is a at 26 weeks gestation. She reports an uncomplicated . She has been receiving care. She also reports 6 months of daily diarrhea. She also reports poor fluid intake. Patient states that her diarrhea has been evaluated and she recently underwent endoscopy, colonoscopy which showed nothing obvious. Patient denies abdominal pain, vaginal bleeding. TRAVEL OUTSIDE OF THE [place] IN LAST 30 DAYS: No - HPI Onset: Just prior to arrival Onset/Duration: Sudden Quality of pain: No pain Associated symptoms: Diarrhea. denies: Chest pain, Earache, Headache, Nausea, Vomiting, Shortness of breath Exacerbated by: Denies Relieved by: Denies Similar symptoms previously: No Recently seen / treated by doctor: No - Related Data Allergies/Adverse Reactions: omeprazole Allergy (Verified 03/08/18 11:28) promethazine HCl [From Phenergan] Allergy (Verified 03/08/18 11:28) Past Medical History - General Information source: Patient, [facility] Records - Social History Smoking Status: Former Smoker Chew tobacco use (# tins/day): No Frequency of alcohol use: None Drug Abuse: None Lives with: Family Family History: CAD, COPD, CVA, Hypertension, Malignancy Patient has suicidal ideation: No Patient has homicidal ideation: No Pulmonary Medical History: Reports: Hx Asthma Neurological Medical History: Reports: Hx Migraine Renal/ Medical History: Denies: Hx Peritoneal Dialysis GI Medical History: Reports: Hx Gastroesophageal Reflux Disease, Hx Irritable Bowel Musculoskeletal Medical History: Reports Hx Musculoskeletal Trauma Traumatic Medical History: Reports: Hx Fractures - Immunizations Immunizations up to date: Yes Hx Diphtheria, Pertussis, Tetanus Vaccination: Yes Review of Systems - Review of Systems Notes: REVIEW OF SYSTEMS: CONSTITUTIONAL : Denies fever, chills, or sweats. Denies recent illness. Denies weight loss, recent hospitalizations. EENT: Denies visual changes, eye pain. Denies sore throat, oral lesions, difficulty swallowing. CARDIOVASCULAR: Denies chest pain. Denies lower extremity edema. RESPIRATORY: Denies cough. Denies shortness of breath, wheezing. GASTROINTESTINAL: Denies abdominal pain or distention. Denies nausea, vomiting. Denies blood in vomitus, stools, or per rectum. Denies black, tarry stools. Denies constipation. GENITOURINARY: Denies difficulty urinating, painful urination, frequency, blood in urine, or vaginal discharge. MUSCULOSKELETAL: Denies back or neck pain or stiffness. Denies joint pain or swelling. SKIN: Denies rash, lesions or sores. HEMATOLOGIC : Denies easy bruising or bleeding. LYMPHATIC: Denies swollen glands. NEUROLOGICAL: Denies confusion or altered mental status. Denies loss of consciousness. Denies dizziness or lightheadedness. Denies headache. Denies weakness or paralysis. Denies problems difficulty with ambulation, slurred speech. Denies sensory loss, numbness, or tingling. Denies seizures. PSYCHIATRIC: Denies anxiety or stress. Denies depression, suicidal ideation, or homicidal ideation. Denies visual or auditory hallucinations. Physical Exam - Vital signs Vitals: Temp Pulse Resp BP Pulse Ox 98.8 F 109 H 16 120/79 98 03/08/18 11:41 03/08/18 11:41 03/08/18 11:41 03/08/18 11:41 03/08/18 11:41 Interpretation: Tachycardic - Notes Notes: PHYSICAL EXAMINATION: GENERAL: Well-appearing, well-nourished and in no acute distress. HEAD: Atraumatic, normocephalic. EYES: Pupils equal round and reactive to light, extraocular movements intact, conjunctiva are normal. ENT: Nares patent, oropharynx clear without exudates. Moist mucous membranes. NECK: Normal range of motion, supple without lymphadenopathy LUNGS: Breath sounds clear to auscultation bilaterally and equal. No wheezes rales or rhonchi. HEART: Regular rate and rhythm without murmurs ABDOMEN: Gravid, soft, nontender, nondistended abdomen. No guarding, no rebound. No masses appreciated. Female : deferred Musculoskeletal: Normal range of motion, no pitting or edema. No cyanosis. NEUROLOGICAL: Cranial nerves grossly intact. Normal speech, normal gait. Normal sensory, motor exams PSYCH: Normal mood, normal affect. SKIN: Warm, Dry, normal turgor, no rashes or lesions noted. Course - Re-evaluation Re-evalutation: 03/08/18 15:33 Laboratory 03/08/18 03/08/18 03/08/18 13:00 13:00 13:00 WBC 10.6 H RBC 3.90 Hgb 11.6 L Hct 34.3 L MCV 88 MCH 29.8 MCHC 33.9 RDW 14.7 H Plt Count 229 Seg Neutrophils % 81.4 H Lymphocytes % 12.9 L Monocytes % 5.0 Eosinophils % 0.6 Basophils % 0.1 Absolute Neutrophils 8.6 H Absolute Lymphocytes 1.4 Absolute Monocytes 0.5 Absolute Eosinophils 0.1 Absolute Basophils 0.0 Sodium 138.7 Potassium 4.5 Chloride 103 Carbon Dioxide 19 L Anion Gap 17 BUN 8 Creatinine 0.44 L Est GFR ( Amer) > 60 Est GFR (Non-Af Amer) > 60 Glucose 89 Calcium 10.0 Magnesium Total Bilirubin 0.5 Direct Bilirubin 0.2 Neonat Total Bilirubin Not Reportable Neonat Direct Bilirubin Not Reportable Neonat Indirect Bili Not Reportable AST 73 H ALT 42 Alkaline Phosphatase 114 Total Protein 7.0 Albumin 4.0 Free T4 0.60 L Free T3 pg/mL 2.75 L Urine Color Urine Appearance Urine pH Ur Specific Felton Urine Protein Urine Glucose (UA) Urine Ketones Urine Blood Urine Nitrite Urine Bilirubin Urine Urobilinogen Ur Leukocyte Esterase Urine WBC (Auto) Urine RBC (Auto) Urine Bacteria (Auto) Squamous Epi Cells Auto Urine Mucus (Auto) Urine Ascorbic Acid Urine Opiates Screen Urine Methadone Screen Ur Barbiturates Screen Ur Phencyclidine Scrn Ur Amphetamines Screen U Benzodiazepines Scrn Urine Cocaine Screen U Marijuana (THC) Screen 03/08/18 03/08/18 03/08/18 13:00 13:51 13:51 WBC RBC Hgb Hct MCV MCH MCHC RDW Plt Count Seg Neutrophils % Lymphocytes % Monocytes % Eosinophils % Basophils % Absolute Neutrophils Absolute Lymphocytes Absolute Monocytes Absolute Eosinophils Absolute Basophils Sodium Potassium Chloride Carbon Dioxide Anion Gap BUN Creatinine Est GFR ( Amer) Est GFR (Non-Af Amer) Glucose Calcium Magnesium 1.8 Total Bilirubin Direct Bilirubin Neonat Total Bilirubin Neonat Direct Bilirubin Neonat Indirect Bili AST ALT Alkaline Phosphatase Total Protein Albumin Free T4 Free T3 pg/mL Urine Color YELLOW Urine Appearance SLIGHTLY-CLOUDY Urine pH 5.0 Ur Specific Felton 1.010 Urine Protein NEGATIVE Urine Glucose (UA) NEGATIVE Urine Ketones NEGATIVE Urine Blood MODERATE H Urine Nitrite NEGATIVE Urine Bilirubin NEGATIVE Urine Urobilinogen NEGATIVE Ur Leukocyte Esterase TRACE H Urine WBC (Auto) 3 Urine RBC (Auto) 4 Urine Bacteria (Auto) 3+ Squamous Epi Cells Auto 5 Urine Mucus (Auto) RARE Urine Ascorbic Acid NEGATIVE Urine Opiates Screen NEGATIVE Urine Methadone Screen NEGATIVE Ur Barbiturates Screen NEGATIVE Ur Phencyclidine Scrn NEGATIVE Ur Amphetamines Screen NEGATIVE U Benzodiazepines Scrn NEGATIVE Urine Cocaine Screen NEGATIVE U Marijuana (THC) Screen NEGATIVE Chest X-Ray 03/08/18 13:39 IMPRESSION: NO ACUTE RADIOGRAPHIC FINDING IN THE CHEST. 03/08/18 15:34 28-year-old female with asthma, GERD, irritable bowel presents with complaint of palpitations that started just prior to arrival while at rest. Patient states that she was laying in bed when she felt her heart pounding and her chest tighten. She said chest tightness resolved within a few seconds but her palpitations continued. She was evaluated by EMS and reports that upon their arrival she was hyperventilating. Patient was then seen by her [employer] INSTALLER who assessed the baby, and sent her to the emergency department. Patient is a at 26 weeks gestation. She reports an uncomplicated . She has been receiving care. She also reports 6 months of daily diarrhea. She also reports poor fluid intake. Patient states that her diarrhea has been evaluated and she recently underwent endoscopy, colonoscopy which showed nothing obvious. Patient denies abdominal pain, vaginal bleeding. Vital signs reviewed upon arrival. Patient is mildly tachycardic, afebrile and not hypoxic. She does not appear toxic or dehydrated. She is in no acute distress. heart tones were obtained and 152. EKG was obtained and showed the patient to be in normal sinus rhythm at a rate of 93. Patient's heart rate has been bouncing between 90 and 110. She does admit to increased stress at home with a defiant teenager and a new baby on the way. CBC showed mild leukocytosis, mild anemia. T3 and T4 levels were obtained just below normal level. On reevaluation patient now complaining of right-sided headache. She states she has had a headache since being recently diagnosed with a dental infection for which she is on amoxicillin. I did speak to the patient regarding her mildly low thyroid levels and stated at this point I would not start her on any medication until she is evaluated by her [employer]ING INSTALLER or PCP. Patient's persistent diarrhea could be the cause of the patient's tachycardia. She denies any shortness of breath. Patient did receive 2 L of lactated Ringer' s, Tylenol, Benadryl. Patient's Wells score is 1.5 which is low risk for PE. Heart rate prior to discharge is 95. Patient was evaluated and treated as appropriate for the patient's presenting symptoms and complaint, with consideration of any critical or life threatening conditions that may be associated with their obtained history and exam as noted above. All results were discussed with patient and patient provided copies of her lab work that was obtained today. Patient provided the opportunity to ask questions, and express concerns. Patient was educated on treatments based on their presumed diagnosis as noted above. At this time we will discharge the patient with return precautions and follow-up recommendations. Verbal discharge instructions given a the bedside. Medication warnings reviewed. Patient is in agreement with this plan and has verbalized understanding of return precautions. After careful consideration I feel that that patient can be safely discharged from the emergency department, they were advised to followup with a primary care physician in 2-3 days. Dictation on this chart was performed using voice recognition software and may result in unintended grammatical, spelling, syntax or errors. 03/08/18 15:43 03/09/18 06:43 - Vital Signs Vital signs: Temp Pulse Resp BP Pulse Ox 98.8 F 109 H 20 112/67 100 03/08/18 11:41 03/08/18 11:41 03/08/18 17:01 03/08/18 17:01 03/08/18 17:01 - Laboratory Result Diagrams: 03/08/18 13:00 03/08/18 13:00 Laboratory results interpreted by me: 03/08/18 03/08/18 03/08/18 13:00 13:00 13:00 WBC 10.6 H Hgb 11.6 L Hct 34.3 L RDW 14.7 H Seg Neutrophils % 81.4 H Lymphocytes % 12.9 L Absolute Neutrophils 8.6 H Carbon Dioxide 19 L Creatinine 0.44 L AST 73 H Free T4 0.60 L Free T3 pg/mL 2.75 L Urine Blood Ur Leukocyte Esterase 03/08/18 13:51 WBC Hgb Hct RDW Seg Neutrophils % Lymphocytes % Absolute Neutrophils Carbon Dioxide Creatinine AST Free T4 Free T3 pg/mL Urine Blood MODERATE H Ur Leukocyte Esterase TRACE H - Diagnostic Test Radiology reviewed: Image reviewed, Reports reviewed - EKG Interpretation by Me EKG shows normal: Sinus rhythm Rate: Normal Rhythm: NSR When compared to previous EKG there are: No significant change Discharge - Discharge Clinical Impression: Palpitations, Low serum triiodothyronine (T3), Low serum T4 level, Tachycardia , Chronic diarrhea Headache Qualifiers: Headache type: unspecified Headache chronicity pattern: chronic headache Intractability: not intractable Qualified Code(s): R51 - Headache Condition: Good Disposition: HOME, SELF-CARE Instructions: Diarrhea, Nonspecific ([facility]), Headache ([facility]), Palpitations ( Irregular or Rapid Heartrate) ([facility]), ([facility]) Additional Instructions: You have been provided copies of your lab work that was performed today. Please bring this to your primary care physician or [facility] [facility]ING INST[employer]ER for review. Please drink plenty of fluids. Return if you experience any chest pain or shortness of breath. Follow up with your [id number] hours for further care or return to the ED IMMEDIATELY if symptoms worsen or you have any concerns. If you cannot afford to follow up with your primary care physician a list of low cost clinics have been provided at the end of your discharge papers as well. Most prescribed medications have multiple side effects. The safest thing to do is when filling your prescription speak to your pharmacist regarding possible interactions with your normal home medications and over the counter medications such as Ibuprofen, Tylenol, Benadryl. If you experience any symptoms that cause you discomfort or concern you should discontinue the medication immediately and return to the emergency room or call your primary care physician.
[2018-03-08 13:46] LABS: FREE T3 2.75 pg/mL (2.77-5.27); FREE T4 (FREE THYROXINE) 0.6 ng/dL (0.78-2.19)
[2018-03-08] MEDS: RINGERS SOLUTION,LACTATED 1,000 ML IV PRN ×2 (13:53→16:35)
[2018-03-08 14:10] LABS: APPEARANCE,URINE SLIGHTLY-CLOUDY; BILIRUBIN,URINE NEGATIVE (NEGATIVE); COLOR,URINE YELLOW; GLUCOSE, URINE NEGATIVE (NEGATIVE); KETONES,URINE NEGATIVE (NEGATIVE); LEUKOCYTE ESTERASE,URINE TRACE (NEGATIVE); NITRITE,URINE NEGATIVE (NEGATIVE); PROTEIN,URINE NEGATIVE (NEGATIVE); UROBILINOGEN,URINE NEGATIVE mg/dL (<2.0)
[2018-03-08 14:29] LABS: URINE AMPHETAMINES SCREEN NEGATIVE; URINE BARBITURATES SCREEN NEGATIVE; URINE BENZODIAZEPINES SCREEN NEGATIVE; URINE COCAINE SCREEN NEGATIVE; URINE MARIJUANA (THC) SCREEN NEGATIVE; URINE METHADONE SCREEN NEGATIVE; URINE PHENCYCLIDINE SCREEN NEGATIVE
--- NOTE | 2018-03-08 14:57 | RADIOLOGY REPORT (SQ) ---
EXAM DESCRIPTION: CHEST 2 VIEWS COMPLETED DATE/TIME: 03/08/2018 2:38 pm REASON FOR STUDY: Palpitations COMPARISON: Two-view chest 07/28/2016, 12/20/2010 EXAM PARAMETERS: NUMBER OF VIEWS: two views TECHNIQUE: Digital Frontal and Lateral radiographic views of the chest acquired. RADIATION DOSE: NA LIMITATIONS: none FINDINGS: LUNGS AND PLEURA: No opacities, masses or pneumothorax. No pleural effusion. MEDIASTINUM AND HILAR STRUCTURES: No masses or contour abnormalities. HEART AND VASCULAR STRUCTURES: Heart normal size. No evidence for failure. BONES: No acute findings. HARDWARE: None in the chest. OTHER: No other significant finding. IMPRESSION: NO ACUTE RADIOGRAPHIC FINDING IN THE CHEST. TECHNICAL DOCUMENTATION: JOB ID: [id number] [employer]- All Rights Reserved Reading location - IP/workstation name: [email or web address]
[2018-03-08] MEDS ORDERED: ACETAMINOPHEN 325 MG TABLET PO ONE (15:30)
[2018-03-08] MEDS ORDERED: DIPHENHYDRAMINE HCL 50 MG/ML VIAL IV ONE (15:31)
[2018-03-08 17:04] VITALS: BP 112/67
== END 2018-03-08 17:05 | disposition home or self-care (01) ==
LOC: ER 11:14
DX: R07.9 Chest pain, unspecified (principal); R19.7 Diarrhea, unspecified; R00.0 Tachycardia, unspecified; R51 Headache; R00.2 Palpitations
CPT/HCPCS: 93005; 99285; 96361; 96374; 36415; 87086; 84439; 83735; 85025; 87088; 80053; 81001; 80307; 84481; 71046; 93010; J1200; J7120

== ENCOUNTER 2018-05-16 17:48 | Emergency (ER) | payer BC ==
[2018-05-16 18:17] LABS: ABSOLUTE EOSINOPHILS # (AUTO) 0.1 10^3/uL (0.0-0.6); ABSOLUTE LYMPHOCYTES (AUTO) 1.8 10^3/uL (0.5-4.7); ABSOLUTE MONOCYTES (AUTO) 0.5 10^3/uL (0.1-1.4); ABSOLUTE NEUT (AUTO) 8.4 10^3/uL (1.7-8.2); BASOPHILS % (AUTO) 0.4 % (0-2); EOSINOPHILS % (AUTO) 0.5 % (0-6); HEMATOCRIT 37.7 % (36.0-47.0); HEMOGLOBIN 12.7 g/dL (12.0-15.5); LYMPHOCYTES % (AUTO) 16.9 % (13-45); MEAN CORPUSCULAR HEMOGLOBIN 29.3 pg (27.0-33.4); MEAN CORPUSCULAR HGB CONC 33.7 g/dL (32.0-36.0); MEAN CORPUSCULAR VOLUME 87 fl (80-97); MONOCYTES % (AUTO) 4.9 % (3-13); PLATELET COUNT 234 10^3/uL (150-450); RED BLOOD COUNT 4.32 10^6/uL (3.72-5.28); RED CELL DISTRIBUTION WIDTH 15.9 % (11.5-14.0); SEGMENTED NEUTROPHILS % (AUTO) 77.3 % (42-78); TOTAL CELLS COUNTED % (AUTO) 100 %; WHITE BLOOD COUNT 10.9 10^3/uL (4.0-10.5)
[2018-05-16 18:30] LABS: ALANINE AMINOTRANSFERASE 43 U/L (9-52); ALBUMIN 4.2 g/dL (3.5-5.0); ALKALINE PHOSPHATASE 197 U/L (38-126); ANION GAP 12 (5-19); ASPARTATE AMINO TRANSFERASE 88 U/L (14-36); BILIRUBIN,DIRECT 0.4 mg/dL (0.0-0.4); BILIRUBIN,TOTAL 0.8 mg/dL (0.2-1.3); BLOOD UREA NITROGEN 10 mg/dL (7-20); CALCIUM 9.9 mg/dL (8.4-10.2); CARBON DIOXIDE 18 mmol/L (22-30); CHLORIDE 107 mmol/L (98-107); GLUCOSE 126 mg/dL (75-110); POTASSIUM 4.1 mmol/L (3.6-5.0); SODIUM 136.9 mmol/L (137-145); TOTAL PROTEIN 6.9 g/dL (6.3-8.2)
[2018-05-16 19:09] VITALS: BP 119/85
[2018-05-16 19:56] LABS: APPEARANCE,URINE CLOUDY; BILIRUBIN,URINE NEGATIVE (NEGATIVE); COLOR,URINE YELLOW; GLUCOSE, URINE NEGATIVE (NEGATIVE); KETONES,URINE 20 mg/dL (NEGATIVE); LEUKOCYTE ESTERASE,URINE LARGE (NEGATIVE); NITRITE,URINE NEGATIVE (NEGATIVE); PROTEIN,URINE 100 mg/dL (NEGATIVE); URINE SPECIFIC GRAVITY 1.014; UROBILINOGEN,URINE NEGATIVE mg/dL (<2.0)
[2018-05-16] MEDS ORDERED: CEPHALEXIN 500 MG CAPSULE PO ONE (19:58)
--- NOTE | 2018-05-16 20:00 | ER Document Report ---
ED General - General Chief Complaint: Shortness Of Breath Stated Complaint: SHORTNESS OF BREATH Time Seen by Provider: 05/16/18 18:11 Notes: Patient is a 28-year-old female, approximately 6 weeks gravid that presents to the emergency department for chief complaint of shortness of breath and palpitations. Patient states that this started approximately 30 minutes prior to ED arrival, where she felt her heart was racing and felt like she could not catch her breath, and decided to come to the emergency department. She is currently 36 weeks gravid, had an episode like this about a month ago, where she was in SVT, and it resolved without medical intervention. She denies any other complications with this so far. She denies having any headaches, increased swelling in her legs, chest pain, abdominal pain, or recent dysuria or hematuria. She denies having any vaginal bleeding, but was having a contraction earlier that has since let up. Past Medical History: Iron deficiency anemia Past Surgical History: Denies surgical history Social History: Former smoker, denies alcohol or drug use. Family History: Reviewed and noncontributory for presenting illness Allergies: Reviewed, see documented allergy list. REVIEW OF SYSTEMS: Other than noted above, the 12 point review of systems was reviewed with the patient and were negative, all pertinent findings are included in the HPI. PHYSICAL EXAMINATION: Vital signs reviewed, nursing noted reviewed. GENERAL: Patient appears in mild to moderate distress, uncomfortable, increased work of breathing HEAD: Atraumatic, normocephalic. EYES: Eyes appear normal, extraocular movements intact, sclera anicteric, conjunctiva are normal. ENT: nares patent, oropharynx clear without exudates. Moist mucous membranes. NECK: Normal range of motion, supple without lymphadenopathy LUNGS: Breath sounds clear to auscultation bilaterally and equal. No wheezes rales or rhonchi. HEART: Tachycardic, regular rhythm, no audible murmur ABDOMEN: Soft, gravid, nontender, normoactive bowel sounds. No rebound, guarding, or rigidity. No masses appreciated. EXTREMITIES: Nontender, good range of motion, no pitting or edema. NEUROLOGICAL: No focal neurological deficits. Moves all extremities spontaneously Motor and sensory grossly intact on exam. PSYCH: Normal mood, normal affect. SKIN: Warm, Dry, normal turgor, no rashes or lesions noted on exposed skin TRAVEL OUTSIDE OF THE [place] IN LAST 30 DAYS: No - Related Data Allergies/Adverse Reactions: omeprazole Allergy (Verified 05/16/18 17:49) promethazine HCl [From Phenergan] Allergy (Verified 05/16/18 17:49) Past Medical History - Social History Smoking Status: Former Smoker Family History: CAD, COPD, CVA, Hypertension, Malignancy Patient has suicidal ideation: No Patient has homicidal ideation: No Pulmonary Medical History: Reports: Hx Asthma Neurological Medical History: Reports: Hx Migraine Renal/ Medical History: Denies: Hx Peritoneal Dialysis GI Medical History: Reports: Hx Gastroesophageal Reflux Disease, Hx Irritable Bowel Musculoskeletal Medical History: Reports Hx Musculoskeletal Trauma Traumatic Medical History: Reports: Hx Fractures - Immunizations Immunizations up to date: Yes Hx Diphtheria, Pertussis, Tetanus Vaccination: Yes Physical Exam - Vital signs Vitals: Temp Pulse Resp BP Pulse Ox 97.9 F 101 H 13 117/78 99 05/16/18 17:50 05/16/18 17:50 05/16/18 17:50 05/16/18 17:50 05/16/18 17:50 Course - Re-evaluation Re-evalutation: Patient seen and examined vital signs reviewed. Laboratory data and imaging were ordered as appropriate for the patient's presenting symptoms and complaint, with consideration of any critical or life threatening conditions that may be associated with their obtained history and exam as noted above. Patient was treated with vagal maneuvers, and did spontaneously convert into sinus tachycardia, with Valsalva maneuver, it was given IV fluid Results were reviewed when available and demonstrated blood work, essentially unremarkable, very mild hyponatremia, she did have what looked to be a urinary tract infection, this will be sent for culture, she was given a dose of Keflex The patient was re-evaluated and was stable, walking around the department, in no acute distress, brief bedside ultrasound was performed to monitor for activity, the fetus was had down, hard to visualize, heart beat measured at 148 bpm, spontaneous movements present. Evaluation was most consistent with SVT and , UTI, patient discharged with 5 days of Keflex, and sent to labor and delivery, for nonstress testing, I did discuss this with the [facility] OPERATOR on-call Dr. Purdy, who agreed with this plan of care, and mention the protein in her urine although she was not hypertensive, and that we both agree that this is most likely from the ongoing and current infection not a concern for preeclampsia. Results were discussed with the patient at this point, after careful consideration I feel that that patient can be discharged from the emergency department, the patient was educated treatments and reasons to return to the emergency department based on their presumed diagnosis as noted above, they were advised to followup with a primary care physician in 2-3 days. Patient was agreeable to plan of care. *Note is created using voice recognition software and may contain spelling, syntax or grammatical errors. Laboratory 05/16/18 05/16/18 05/16/18 18:00 18:00 18:00 WBC 10.9 H RBC 4.32 Hgb 12.7 Hct 37.7 MCV 87 MCH 29.3 MCHC 33.7 RDW 15.9 H Plt Count 234 Seg Neutrophils % 77.3 Lymphocytes % 16.9 Monocytes % 4.9 Eosinophils % 0.5 Basophils % 0.4 Absolute Neutrophils 8.4 H Absolute Lymphocytes 1.8 Absolute Monocytes 0.5 Absolute Eosinophils 0.1 Absolute Basophils 0.0 Sodium 136.9 L Potassium 4.1 Chloride 107 Carbon Dioxide 18 L Anion Gap 12 BUN 10 Creatinine 0.53 Est GFR ( Amer) > 60 Est GFR (Non-Af Amer) > 60 Glucose 126 H Calcium 9.9 Magnesium Total Bilirubin 0.8 Direct Bilirubin 0.4 Neonat Total Bilirubin Not Reportable Neonat Direct Bilirubin Not Reportable Neonat Indirect Bili Not Reportable AST 88 H ALT 43 Alkaline Phosphatase 197 H Troponin I < 0.012 Total Protein 6.9 Albumin 4.2 Urine Color Urine Appearance Urine pH Ur Specific [place] Urine Protein Urine Glucose (UA) Urine Ketones Urine Blood Urine Nitrite Urine Bilirubin Urine Urobilinogen Ur Leukocyte Esterase Urine WBC (Auto) Urine RBC (Auto) U Hyaline Cast (Auto) Urine Bacteria (Auto) Urine WBC Clumps Squamous Epi Cells Auto Urine Mucus (Auto) Urine Ascorbic Acid 05/16/18 05/16/18 18:00 19:27 WBC RBC Hgb Hct MCV MCH MCHC RDW Plt Count Seg Neutrophils % Lymphocytes % Monocytes % Eosinophils % Basophils % Absolute Neutrophils Absolute Lymphocytes Absolute Monocytes Absolute Eosinophils Absolute Basophils Sodium Potassium Chloride Carbon Dioxide Anion Gap BUN Creatinine Est GFR ( Amer) Est GFR (Non-Af Amer) Glucose Calcium Magnesium 1.8 Total Bilirubin Direct Bilirubin Neonat Total Bilirubin Neonat Direct Bilirubin Neonat Indirect Bili AST ALT Alkaline Phosphatase Troponin I Total Protein Albumin Urine Color YELLOW Urine Appearance CLOUDY Urine pH 7.0 Ur Specific [place] 1.014 Urine Protein 100 H Urine Glucose (UA) NEGATIVE Urine Ketones 20 H Urine Blood NEGATIVE Urine Nitrite NEGATIVE Urine Bilirubin NEGATIVE Urine Urobilinogen NEGATIVE Ur Leukocyte Esterase LARGE H Urine WBC (Auto) 26 Urine RBC (Auto) 11 U Hyaline Cast (Auto) 3 Urine Bacteria (Auto) 3+ Urine WBC Clumps FEW Squamous Epi Cells Auto 16 Urine Mucus (Auto) FEW Urine Ascorbic Acid 40 H - Vital Signs Vital signs: Temp Pulse Resp BP Pulse Ox 97.9 F 101 H 18 119/85 98 05/16/18 17:50 05/16/18 17:50 05/16/18 20:00 05/16/18 19:01 05/16/18 19:01 - Laboratory Result Diagrams: 05/16/18 18:00 05/16/18 18:00 Laboratory results interpreted by me: 05/16/18 05/16/18 05/16/18 18:00 18:00 19:27 WBC 10.9 H RDW 15.9 H Absolute Neutrophils 8.4 H Sodium 136.9 L Carbon Dioxide 18 L Glucose 126 H AST 88 H Alkaline Phosphatase 197 H Urine Protein 100 H Urine Ketones 20 H Ur Leukocyte Esterase LARGE H Urine Ascorbic Acid 40 H - EKG Interpretation by Me Additional EKG results interpreted by me: EKG demonstrates SVT with a ventricular rate of 192 bpm, normal axis, QTC 465 ms, no acute ischemia. Critical Care Note - Critical Care Note Total time excluding time spent on procedures (mins): 35 Comments: Critical care time 35 minutes exclusive from separate billable procedures for a patient requiring complex medical decision making, and high potential for clinical deterioration. In a patient that is with SVT, requiring close monitoring and frequent re-evaluations. Time spent obtaining history from patient or surrogate, discussions with consultants, development of treatment plan with patient or surrogate, evaluation of patient's response to treatment, examination of patient, ordering and performing treatments and interventions, ordering and review of laboratory studies, re-evaluation of patient's condition, ordering and review of radiographic studies and review of old charts Discharge - Discharge Clinical Impression: SVT (supraventricular tachycardia) UTI (urinary tract infection) Qualifiers: Urinary tract infection type: site unspecified Hematuria presence: without hematuria Qualified Code(s): N39.0 - Urinary tract infection, site not specified Condition: Stable Disposition: HOME, SELF-CARE Instructions: Urinary Tract Infection ([facility]) Additional Instructions: Please follow-up with [facility], call for an appointment, take the antibiotics as prescribed and complete the entire course. Prescriptions: RX: Cephalexin Monohydrate [Keflex 500 mg Capsule] 500 mg PO BID 5 Days #10 capsule Referrals: DIRK MCKEON MD [Primary Care Provider] - Follow up in 3-5 days [facility] [Provider Group] - Follow up as needed
--- NOTE | 2018-05-17 09:24 | EKG REPORT ---
SEVERITY:- ABNORMAL ECG - SUPRAVENTRICULAR TACHYCARDIA ST DEPRESSION, PROBABLY RATE RELATED : Confirmed by: Willow Salas 17-May-2018 09:23:29
== END 2018-05-16 20:23 | disposition home or self-care (01) ==
LOC: ER 17:48
DX: O26.91 Pregnancy related conditions, unspecified, first trimester (principal); I47.1 Supraventricular tachycardia; R06.02 Shortness of breath; O23.41 Unspecified infection of urinary tract in pregnancy, first trimester; R00.2 Palpitations; Z3A.01 Less than 8 weeks gestation of pregnancy
CPT/HCPCS: 36415; 80053; 81001; 83735; 84484; 85025; 93005; 93010; 99291

== ENCOUNTER 2018-05-16 20:17 | Outpatient (CLI) | payer BC ==
--- NOTE | 2018-05-16 21:15 | Non Stress Test Report ---
Non Stress Test Datetime Report Generated by CPN: 05/16/2018 21:14 DEMOGRAPHIC EGA NST: 36.2 INDICATION Indication for Study: Ordered by Provider MONITORING Monitor Explained: Monitor Explained; Test Explained; Patient Verbalized Understanding Time on Monitor: 05/16/2018 20:32 Time off Monitor: 05/16/2018 21:01 NST Duration: 29 NST INTERVENTIONS NST Interventions: Reposition Patient Physician Notified NST: Dr. Purdy BABY A: [id number] BABY A Movement : Present Contraction Frequency : none FHR Baseline : 135 Accelerations : 15X15 Decelerations : None Variability : Moderate 6-25bpm NST Review: Meets Criteria for Reactive NST NST Review and Verified By : NDoyle RN NST Results: Reactive NST REPORT Report Trigger: Send Report
== END 2018-05-16 21:10 | disposition home or self-care (01) ==
LOC: LC 20:17
PROVIDERS: ATTEND Obstetrics & Gynecology
PROC: 4A1HXCZ Monitoring of Products of Conception, Cardiac Rate, External Approach (ICD-10-PCS; principal; 2018-05-16)
DX: Z34.93 Encounter for supervision of normal pregnancy, unspecified, third trimester (principal)
CPT/HCPCS: 59025

== ENCOUNTER 2018-05-29 19:29 | Outpatient (CLI) | payer BC ==
[2018-05-29 20:16] LABS: APPEARANCE,URINE SLIGHTLY-CLOUDY; BILIRUBIN,URINE NEGATIVE (NEGATIVE); COLOR,URINE YELLOW; GLUCOSE, URINE NEGATIVE (NEGATIVE); KETONES,URINE NEGATIVE (NEGATIVE); LEUKOCYTE ESTERASE,URINE TRACE (NEGATIVE); NITRITE,URINE NEGATIVE (NEGATIVE); PROTEIN,URINE NEGATIVE (NEGATIVE); URINE SPECIFIC GRAVITY 1.029
--- NOTE | 2018-05-29 20:22 | Non Stress Test Report ---
Non Stress Test Datetime Report Generated by CPN: 05/29/2018 20:22 DEMOGRAPHIC EGA NST: 38.1 INDICATION Indication for Study: Ordered by Provider MONITORING Monitor Explained: Monitor Explained; Test Explained; Patient Verbalized Understanding Time on Monitor: 05/29/2018 19:45 Time off Monitor: 05/29/2018 20:17 NST Duration: 32 NST INTERVENTIONS NST Interventions: None Physician Notified NST: Dr. Gianfranco BABY A: [id number] BABY A Movement : Present Contraction Frequency : uterine irritability FHR Baseline : 145 Accelerations : 15X15 Decelerations : None Variability : Moderate 6-25bpm NST Review: Meets Criteria for Reactive NST NST Review and Verified By : Ike REVELES Results: Reactive NST REPORT Report Trigger: Send Report
[2018-05-29] MEDS ORDERED: HYDROXYZINE PAMOATE 50 MG CAPSULE PO ONE (20:25)
[2018-05-29] MEDS ORDERED: HYDROXYZINE PAMOATE 50 MG CAPSULE ONE (20:27)
[2018-05-29 20:33] LABS: URINE AMPHETAMINES SCREEN NEGATIVE; URINE BARBITURATES SCREEN NEGATIVE; URINE BENZODIAZEPINES SCREEN NEGATIVE; URINE COCAINE SCREEN NEGATIVE; URINE MARIJUANA (THC) SCREEN NEGATIVE; URINE METHADONE SCREEN NEGATIVE; URINE PHENCYCLIDINE SCREEN NEGATIVE
[2018-05-29] MEDS ORDERED: RINGERS SOLUTION,LACTATED 1,000 ML IV PRN (20:45)
== END 2018-05-29 20:43 | disposition home or self-care (01) ==
LOC: LC 19:29
PROVIDERS: ATTEND Obstetrics & Gynecology
PROC: 4A1HXCZ Monitoring of Products of Conception, Cardiac Rate, External Approach (ICD-10-PCS; principal; 2018-05-29)
DX: O47.1 False labor at or after 37 completed weeks of gestation (principal); Z3A.38 38 weeks gestation of pregnancy
CPT/HCPCS: 59025; 80307; 81005

== ENCOUNTER 2018-06-04 16:18 | Inpatient (IN) | payer BC ==
[2018-06-04 16:53] LABS: HEMATOCRIT 33.8 % (36.0-47.0); HEMOGLOBIN 11.5 g/dL (12.0-15.5); MEAN CORPUSCULAR HEMOGLOBIN 29.2 pg (27.0-33.4); MEAN CORPUSCULAR HGB CONC 34.1 g/dL (32.0-36.0); MEAN CORPUSCULAR VOLUME 86 fl (80-97); PLATELET COUNT 222 10^3/uL (150-450); RED BLOOD COUNT 3.93 10^6/uL (3.72-5.28); WHITE BLOOD COUNT 9.6 10^3/uL (4.0-10.5)
[2018-06-04 17:15] LABS: ALANINE AMINOTRANSFERASE 39 U/L (9-52); ALBUMIN 3.9 g/dL (3.5-5.0); ALKALINE PHOSPHATASE 184 U/L (38-126); ANION GAP 11 (5-19); ASPARTATE AMINO TRANSFERASE 80 U/L (14-36); BILIRUBIN,DIRECT 0.3 mg/dL (0.0-0.4); BILIRUBIN,TOTAL 0.6 mg/dL (0.2-1.3); BLOOD UREA NITROGEN 14 mg/dL (7-20); CALCIUM 9.9 mg/dL (8.4-10.2); CARBON DIOXIDE 19 mmol/L (22-30); CHLORIDE 109 mmol/L (98-107); GLUCOSE 99 mg/dL (75-110); POTASSIUM 4.3 mmol/L (3.6-5.0); SODIUM 139.3 mmol/L (137-145); TOTAL PROTEIN 6.5 g/dL (6.3-8.2); URIC ACID 5.7 mg/dL (2.5-6.2)
[2018-06-04 17:16] LABS: URINE AMPHETAMINES SCREEN NEGATIVE; URINE BARBITURATES SCREEN NEGATIVE; URINE BENZODIAZEPINES SCREEN NEGATIVE; URINE COCAINE SCREEN NEGATIVE; URINE MARIJUANA (THC) SCREEN NEGATIVE; URINE METHADONE SCREEN NEGATIVE; URINE PHENCYCLIDINE SCREEN NEGATIVE
[2018-06-04 17:24] LABS: UR PRO/CREAT RATIO RESULT 0.1 mg/mg (0.0-0.2); URINE CREATININE 155.9 mg/dL (16-327); URINE PROTEIN 14.3 mg/dL (<12)
[2018-06-04] MEDS ORDERED: ONDANSETRON 4 MG TAB.RAPDIS PO ONE (18:27)
[2018-06-04] MEDS ORDERED: ONDANSETRON 4 MG TAB.RAPDIS ONE (18:30)
[2018-06-04 20:53] LABS: ABSOLUTE LYMPHOCYTES# (MANUAL) 0.9 10^3/uL (0.5-4.7); ABSOLUTE MONOCYTES # (MANUAL) 0.2 10^3/uL (0.1-1.4); ABSOLUTE NEUTROPHILS# (MANUAL) 8.5 10^3/uL (1.7-8.2); BASOPHILS % (MANUAL) 0 % (0-2); EOSINOPHILS % (MANUAL) 0 % (0-6); LYMPHOCYTES % (MANUAL) 9 % (13-45); MONOCYTES % (MANUAL) 2 % (3-13); SEGMENTED NEUTROPHILS % (MAN) 89 % (42-78); TOTAL CELLS COUNTED 100
[2018-06-04 20:54] LABS: ANISOCYTOSIS 1+; PLATELET CLUMPS PRESENT; PLATELET COMMENT ADEQUATE
[2018-06-04] MEDS ORDERED: RINGERS SOLUTION,LACTATED 1,000 ML IV ONE (21:51)
[2018-06-04] MEDS ORDERED: RINGERS SOLUTION,LACTATED 1,000 ML IV PRN ×2 (21:51→23:13)
--- NOTE | 2018-06-04 22:26 | RADIOLOGY REPORT (SQ) ---
EXAM DESCRIPTION: US BIOPHYSICAL PROFILE WITHOUT NON STRESS TEST COMPLETED DATE/TME: 06/04/2018 00:00 CLINICAL HISTORY: 28 years Female Non-reactive NST COMPARISON: None. TECHNIQUE: Transabdominal duplex imaging performed to evaluate the pelvis. FINDINGS: heart rate 144 bpm. LIZETH 16.9 cm. No breathing was observed. tone and movement observed. Vertex presentation. IMPRESSION: Biophysical profile 10/06. Dr. Medel was called and notified of the findings at 9:25 PM central time.
[2018-06-04] MEDS ORDERED: RINGERS SOLUTION,LACTATED 300 ML IV ONE (23:13)
[2018-06-04] MEDS ORDERED: LIDOCAINE 1% INJ-PF (10 MG/ML) 30 ML SDV ONE (23:13)
[2018-06-04] MEDS ORDERED: OXYTOCIN/NORMAL SALINE 20 UNIT/1,000 ML RTUINJ IV PRN (23:13)
[2018-06-04] MEDS ORDERED: DINOPROSTONE 10 MG VAGINAL INSERT.SR PV PRN (23:13)
[2018-06-04] MEDS ORDERED: MISOPROSTOL 0.2 MG TABLET ONE (23:13)
[2018-06-04] MEDS ORDERED: DINOPROSTONE 10 MG VAGINAL INSERT.SR ONE (23:14)
[2018-06-04] MEDS ORDERED: OXYTOCIN/NORMAL SALINE 20 UNIT/1,000 ML RTUINJ ONE (23:14)
--- NOTE | 2018-06-04 23:18 | Admission Physical ---
Datetime Report Generated by CPN: 06/04/2018 23:17 CURRENT ADMISSION Chief Complaint: Other Indication for Induction: Gestational HTN; Indicated by Testing Indication for Induction- Other: sent from office for repeat NST. BPP 10/06. Was scheduled for induction on 06/06/2018. Will begin indicution now instead Admit Impression : Term, Intrauterine ; No Active Labor; Induction of Labor Admit Plan: Admit to Unit; Initiate Labor Induction Protocol ALLERGIES Medication Allergies: Yes Medication Allergies: morphine (05/29/2018); promethazine (05/29/2018) Latex: No Latex Allergies OBSTETRICAL HISTORY EDC: 06/11/2018 00:00 : 4 Para: 2 Term: 2 : 0 SAB: 0 IAB: 1 Ectopic: 0 Livin Cesareans: 0 VBACs: 0 Multiple Births: 0 Gestational Diabetes: No Rh Sensitization: No Incompetent Cervix: No SHANTELLE: No Infertility: No ART Treatment: No Uterine Anomaly: No IUGR: No Hx Previous C/S: No Macrosomia: No Hx Loss/Stillborn: No PIH: No Hx : No Placenta Previa/Abruption: No Depression/PP Depression: No PTL/PROM: No Post Hemorrhage: No Current Procedures: Ultrasound; NST Obstetrical History Comments: G1- 2004 at term 7lbs female G2- 2008 at term 10lbs male G3- 2017 10 week EAB G4-current SEE RECORDS Alcohol: No Marijuana : No Cocaine: No Other Illicit Drugs: No Cigarettes: Never Smoker. [id number] MEDICAL HISTORY Diabetes: No Blood Transfusion: No Pulmonary Disease (Asthma, TB): No Breast Disease: No Hypertension: No Flag Signaler Surgery: No Heart Disease: Yes Hosp/Surgery: No Autoimmune Disorder: No Anesthetic Complications: No Kidney Disease: No Abnormal Pap Smear: No Neuro/Epilepsy: No Psychiatric Disorders: Yes Other Medical Diseases: No Hepatitis/Liver Disease: No Significant Family History: No Varicosities/Phlebitis: No Trauma/Violence : No Thyroid Dysfunction: No Medical History Comments: depression, tachycardia INFECTIOUS HISTORY Gonorrhea: No Genital Herpes: No Chlamydia: No Tuberculosis: No Syphilis: No Hepatitis: No HIV/AIDS Exposure: No Rash or Viral Illness: No HPV: No PHYSICAL EXAM General: Normal HEENT: Normal Neurologic: Normal Thyroid: Normal Heart: Normal Lungs: Normal Breast: Normal Back: Normal Abdomen: Normal Genitourinary Exam: Normal Extremities: Normal DTRs: Normal Pelvic Type: Adequate Vital Signs: Reviewed VAGINAL EXAM Dilatation: 2 Effacement: 50 Station: -2 MEMBRANES Pooling: Negative Membranes: Intact FETUS A EGA: 39.0 Monitoring: External US FHR- Baseline: 150 Variability: Moderate 6-25bpm Accelerations: 10X10 Decelerations: None FHR Category: Category II Estimated Weight (gm): 3400 Presentation: Vertex PLANS FOR LABOR AND DELIVERY Labor and Delivery: None Pain Management: Epidural Feeding Preference: Breast Benefit of Breast Feed Discussed: Yes Circumcision: Yes INFORMED CONSENT Signature: with User ID: [email or web address]
[2018-06-04] MEDS ORDERED: HYDROXYZINE PAMOATE 50 MG CAPSULE ONE (23:35)
[2018-06-04] MEDS ORDERED: HYDROXYZINE PAMOATE 50 MG CAPSULE PO ONE (23:40)
[2018-06-05] MEDS ORDERED: LIDOCAINE 2% JELLY 5 ML TUBE TOP ONE (09:54)
[2018-06-05] MEDS ORDERED: LIDOCAINE 2% JELLY 5 ML TUBE ONE (09:56)
[2018-06-05 10:15] LABS: ABSOLUTE LYMPHOCYTES (AUTO) 1.1 10^3/uL (0.5-4.7); ABSOLUTE MONOCYTES (AUTO) 0.6 10^3/uL (0.1-1.4); ABSOLUTE NEUT (AUTO) 6.3 10^3/uL (1.7-8.2); BASOPHILS % (AUTO) 0.2 % (0-2); EOSINOPHILS % (AUTO) 0.4 % (0-6); HEMATOCRIT 35.1 % (36.0-47.0); HEMOGLOBIN 11.8 g/dL (12.0-15.5); MEAN CORPUSCULAR HEMOGLOBIN 29.1 pg (27.0-33.4); MEAN CORPUSCULAR HGB CONC 33.6 g/dL (32.0-36.0); MEAN CORPUSCULAR VOLUME 87 fl (80-97); MONOCYTES % (AUTO) 7.3 % (3-13); PLATELET COUNT 208 10^3/uL (150-450); RED BLOOD COUNT 4.06 10^6/uL (3.72-5.28); RED CELL DISTRIBUTION WIDTH 16.1 % (11.5-14.0); SEGMENTED NEUTROPHILS % (AUTO) 78.1 % (42-78); TOTAL CELLS COUNTED % (AUTO) 100 %; WHITE BLOOD COUNT 8.1 10^3/uL (4.0-10.5)
[2018-06-05] MEDS ORDERED: FENTANYL CITRATE INJ/PF 100 MCG/2 ML AMPUL ONE (10:23)
[2018-06-05] MEDS ORDERED: PHENYLEPHRINE HCL INJ/PF 10 MG/1 ML SDV ONE (10:23)
[2018-06-05] MEDS ORDERED: EPHEDRINE SULFATE INJ 50 MG/1 ML AMPULE ONE (10:23)
[2018-06-05] MEDS ORDERED: BUPIVACAINE HCL 0.25 % INJ/PF (2.5 MG/1 ML) 30 ML VIAL ONE (10:24)
[2018-06-05] MEDS ORDERED: LIDOCAINE 1.5%/EPINEPHRINE INJ-PF 30 ML SDV ONE (10:24)
[2018-06-05] MEDS ORDERED: FENTANYL/BUPIVACAINE/NS/PF 300 MCG/150 ML RTUINJ EPI ONE (10:24)
--- NOTE | 2018-06-05 10:30 | L&D Progress Notes ---
PROGRESS NOTES Datetime Report Generated by CPN: 06/05/2018 10:30 PROGRESS NOTE Procedures: Artificial ROM Plan: Induction Vital Signs : Reviewed Comment: Attemped placement of cook catheter, not successful, cervix posterior, head well applied to internal os with high station AROM with FSE, unable to successfully attach FSE pt having difficulty with exam, xylocaine jelly used for exam VAGINAL EXAM Dilatation: 2 Effacement: 50 Station: -2 LAST VAGINAL EXAM-NURSING Dilitation: 3.0 Dilitation: 2.0 Dilitation: 1.0 Effacement: 50 Effacement: 50 Effacement: 50 Station: -2 Station: -3 Station: -3 MEMBRANES Pooling: Negative Membranes: Ruptured Membranes: Intact Amniotic Fluid Color: Clear FETUS A FHR - Baseline: 150 Monitoring: External US Variability: Moderate 6-25bpm Decelerations: None : 39.1 : 39.0 Estimated Weight (gm): 3400 Presentation: Vertex SIGNATURE SIGNATURE: [id number];[id number];[id number] SIGNATURE: [id number];[id number] SIGNATURE: [id number] SIGNATURE: [id number] Assignment: Danielle Salamanca MD Signature: with User ID: [email or web address] : with User ID: [email or web address]
[2018-06-05 10:35] LABS: ALANINE AMINOTRANSFERASE 44 U/L (9-52); ALBUMIN 3.7 g/dL (3.5-5.0); ALKALINE PHOSPHATASE 186 U/L (38-126); ANION GAP 10 (5-19); ASPARTATE AMINO TRANSFERASE 89 U/L (14-36); BILIRUBIN,DIRECT 0.2 mg/dL (0.0-0.4); BILIRUBIN,TOTAL 0.5 mg/dL (0.2-1.3); BLOOD UREA NITROGEN 12 mg/dL (7-20); CALCIUM 9.6 mg/dL (8.4-10.2); CARBON DIOXIDE 24 mmol/L (22-30); CHLORIDE 107 mmol/L (98-107); GLUCOSE 102 mg/dL (75-110); POTASSIUM 4.4 mmol/L (3.6-5.0); SODIUM 140.5 mmol/L (137-145); TOTAL PROTEIN 6.3 g/dL (6.3-8.2); URIC ACID 5.5 mg/dL (2.5-6.2)
[2018-06-05] MEDS ORDERED: OXYTOCIN/NORMAL SALINE 20 UNIT/1,000 ML RTUINJ IV PRN (10:45)
[2018-06-05] MEDS ORDERED: ONDANSETRON HCL INJ/PF 4 MG/2 ML SDV IV ONE (14:05)
[2018-06-05] MEDS ORDERED: ONDANSETRON HCL INJ/PF 4 MG/2 ML SDV ONE (14:06)
[2018-06-05] MEDS ORDERED: ONDANSETRON 4 MG TAB.RAPDIS ONE (19:52)
[2018-06-05] MEDS ORDERED: DIPHENHYDRAMINE HCL 50 MG/ML VIAL ONE (23:40)
[2018-06-05] MEDS ORDERED: DIPHENHYDRAMINE HCL 50 MG/ML VIAL IV ONE (23:40)
[2018-06-06] MEDS ORDERED: NALBUPHINE HCL INJ 10 MG/1 ML AMPULE INJ ONE (00:01)
[2018-06-06] MEDS ORDERED: NALBUPHINE HCL INJ 10 MG/1 ML AMPULE ONE (00:02)
[2018-06-06] MEDS ORDERED: ONDANSETRON 4 MG TAB.RAPDIS ONE ×2 (00:09→07:25)
[2018-06-06] MEDS: ONDANSETRON 4 MG TAB.RAPDIS PO PRN ×2 (00:10→07:30)
[2018-06-06] MEDS ORDERED: LIDOCAINE 2% INJ-PF (20 MG/ML) 10 ML AMPUL ONE (00:45)
[2018-06-06] MEDS ORDERED: BUPIVACAINE HCL 0.25 % INJ/PF (2.5 MG/1 ML) 30 ML VIAL ONE (00:46)
[2018-06-06] MEDS ORDERED: LIDOCAINE 2%/EPINEPHRINE INJ 20 ML VIAL ONE (00:48)
[2018-06-06] MEDS ORDERED: FENTANYL/BUPIVACAINE/NS/PF 300 MCG/150 ML RTUINJ EPI ONE (00:52)
[2018-06-06] MEDS ORDERED: SODIUM BICARBONATE 8.4% INJ 50 MEQ/50 ML DISP.SYRIN ONE (01:06)
[2018-06-06] MEDS ORDERED: GENTAMICIN SULFATE INJ 80 MG/2 ML VIAL IV ONE (03:36)
[2018-06-06] MEDS ORDERED: GENTAMICIN SULFATE INJ 80 MG/2 ML VIAL ONE (03:40)
[2018-06-06] MEDS ORDERED: AMPICILLIN SOD INJ 2 GM VIAL ONE ×2 (03:41→22:39)
[2018-06-06] MEDS ORDERED: AMPICILLIN SOD INJ 2 GM VIAL IM SCH (03:45)
[2018-06-06] MEDS ORDERED: GENTAMICIN SULFATE INJ 80 MG/2 ML VIAL IV SCH (03:45)
[2018-06-06] MEDS ORDERED: AMPICILLIN SOD INJ 2 GM VIAL IV PRN (03:46)
[2018-06-06] MEDS ORDERED: GENTAMICIN SULFATE INJ 80 MG/2 ML VIAL IV PRN (03:48)
[2018-06-06] MEDS: AMPICILLIN SODIUM 2 GM in NORMAL SALINE 100 ML IV SCH ×4 (03:54→22:57)
[2018-06-06] MEDS ORDERED: GENTAMICIN SULFATE IV ONE (04:00)
[2018-06-06] MEDS ORDERED: WATER IV ONE (04:00)
[2018-06-06] MEDS ORDERED: DEXTROSE 5% IV ONE (04:00)
--- NOTE | 2018-06-06 05:38 | L&D Progress Notes ---
PROGRESS NOTES Datetime Report Generated by CPN: 06/06/2018 04:13 PROGRESS NOTE Impression Other: IOL, PRolonged ROM Procedures: Sterile Vag Exam Plan: Induction Informed Consent Obtained: Vaginal Delivery; Induction of Labor; Risks, Benefits and Alternatives Discussed Comment: when I checked patient at 2335 patient was 6-7/50 with significant cervical swelling. She however had just been checked and called 8. On exam now she is 7-8/70/0 with thickened anterior lip. Able to reduce the left side of cervix and almost able to reduce right and anterior lip. Will begin Amp/Gent due to prolonged rupture. Discussed with patient need for positioning and need for peanut ball to help with head descent and remainder of cervix. She verbalized understanding. Anticipate . IUPC and FSE placed. VAGINAL EXAM Dilitation: 9.0 Dilitation: 7.5 Dilitation: 7-8 Dilitation: 8.0 Dilitation: 6.0 Dilitation: 4.0 Effacement: 70 Effacement: 70 Effacement: 70 Effacement: 90 Effacement: 80 Effacement: 60 Station: -1 Station: -1 Station: 0 Station: 0 Station: 0 Station: -2 Contractions: RN at bedside, troubleshooting [employer] wireless system FETUS A FHR - Baseline: 160 Monitoring: External US Variability: Moderate 6-25bpm Accelerations: 15X15 Decelerations: None FHR Category: Category I FETUS C SIGNATURE: [id number];[id number];10,[id number] Signature: with User ID: [email or web address]
[2018-06-06] MEDS ORDERED: AMPICILLIN SOD INJ 2 GM VIAL IV SCH (06:00)
[2018-06-06] MEDS ORDERED: OXYTOCIN/NORMAL SALINE 20 UNIT/1,000 ML RTUINJ ONE (06:26)
[2018-06-06] MEDS ORDERED: BENZOCAINE/MENTHOL AEROSOL SPRAY 56 ML TOP PRN (06:47)
[2018-06-06] MEDS ORDERED: NA PHOS,M-B/NA PHOS,DI-BA (ADULT) 133 ML ENEMA PR PRN (06:47)
[2018-06-06] MEDS ORDERED: OXYTOCIN/NORMAL SALINE 20 UNIT/1,000 ML RTUINJ IV PRN (06:47)
[2018-06-06] MEDS ORDERED: DIPHENHYDRAMINE HCL 25 MG CAPSULE PO PRN (06:47)
[2018-06-06] MEDS ORDERED: PSEUDOEPHEDRINE HCL 30 MG TABLET PO PRN (06:47)
[2018-06-06] MEDS ORDERED: PROMETHAZINE HCL INJ 25 MG/1 ML VIAL IV PRN (06:47)
[2018-06-06] MEDS ORDERED: MEASLES,MUMPS&RUBELLA VACC/PF 0.5 ML VIAL SUBCUT PRN (06:47)
[2018-06-06] MEDS ORDERED: PROMETHAZINE HCL 25 MG SUPP.RECT PR PRN (06:47)
[2018-06-06] MEDS ORDERED: DIPH/PERTUSS(ACELL)/TETANUS VAC/PF 0.5 ML SYR (>=10YO) IM PRN (06:47)
[2018-06-06] MEDS ORDERED: PROMETHAZINE HCL 25 MG TABLET PO PRN (06:47)
[2018-06-06] MEDS ORDERED: GLYCERIN/WITCH HAZEL LEAF 1 EACH MED..PAD TP PRN (06:47)
[2018-06-06] MEDS ORDERED: ACETAMINOPHEN 325 MG TABLET PO PRN (06:47)
[2018-06-06] MEDS ORDERED: MAGNESIUM HYDROXIDE SUSP 30 ML UDCUP PO PRN (06:47)
[2018-06-06] MEDS ORDERED: DIBUCAINE 1% OINTMENT 28 GM TP PRN (06:47)
[2018-06-06] MEDS ORDERED: ZOLPIDEM TARTRATE 5 MG TABLET PO PRN (06:47)
[2018-06-06] MEDS ORDERED: MISOPROSTOL 0.2 MG TABLET PR PRN (06:47)
[2018-06-06] MEDS ORDERED: FAMOTIDINE 20 MG TABLET PO ONE (07:00)
[2018-06-06] MEDS ORDERED: SENNOSIDES/DOCUSATE 8.6-50 MG 1 EACH TABLET PO ONE (07:00)
[2018-06-06] MEDS ORDERED: PRENATAL VITAMIN W DHA CAPSULE PO ONE ×2 (07:00→09:10)
[2018-06-06] MEDS ORDERED: IBUPROFEN 800 MG TABLET PO ONE (07:00)
[2018-06-06] MEDS ORDERED: HYDRALAZINE HCL INJ/PF 20 MG/1 ML SDV ONE (07:09)
[2018-06-06] MEDS ORDERED: IBUPROFEN 800 MG TABLET ONE (07:50)
[2018-06-06 07:56] LABS: HEMATOCRIT 33.9 % (36.0-47.0); HEMOGLOBIN 11.2 g/dL (12.0-15.5); MEAN CORPUSCULAR HEMOGLOBIN 28.5 pg (27.0-33.4); MEAN CORPUSCULAR VOLUME 86 fl (80-97); PLATELET COUNT 188 10^3/uL (150-450); RED BLOOD COUNT 3.93 10^6/uL (3.72-5.28); RED CELL DISTRIBUTION WIDTH 16.3 % (11.5-14.0); WHITE BLOOD COUNT 14.5 10^3/uL (4.0-10.5)
[2018-06-06 08:03] LABS: ALANINE AMINOTRANSFERASE 35 U/L (9-52); ALBUMIN 2.9 g/dL (3.5-5.0); ALKALINE PHOSPHATASE 170 U/L (38-126); ANION GAP 11 (5-19); ASPARTATE AMINO TRANSFERASE 66 U/L (14-36); BILIRUBIN,DIRECT 0.4 mg/dL (0.0-0.4); BILIRUBIN,TOTAL 0.9 mg/dL (0.2-1.3); BLOOD UREA NITROGEN 12 mg/dL (7-20); CALCIUM 8.6 mg/dL (8.4-10.2); CARBON DIOXIDE 20 mmol/L (22-30); CHLORIDE 108 mmol/L (98-107); GLUCOSE 113 mg/dL (75-110); SODIUM 138.9 mmol/L (137-145); TOTAL PROTEIN 5.2 g/dL (6.3-8.2); URIC ACID 6.3 mg/dL (2.5-6.2)
[2018-06-06 08:36] LABS: ABSOLUTE LYMPHOCYTES# (MANUAL) 1.7 10^3/uL (0.5-4.7); ABSOLUTE MONOCYTES # (MANUAL) 0.6 10^3/uL (0.1-1.4); ABSOLUTE NEUTROPHILS# (MANUAL) 12.2 10^3/uL (1.7-8.2); BAND NEUTROPHILS % (MANUAL) 2 % (3-5); BASOPHILS % (MANUAL) 0 % (0-2); EOSINOPHILS % (MANUAL) 0 % (0-6); LYMPHOCYTES % (MANUAL) 12 % (13-45); MONOCYTES % (MANUAL) 4 % (3-13); SEGMENTED NEUTROPHILS % (MAN) 82 % (42-78); TOTAL CELLS COUNTED 100
[2018-06-06 08:37] LABS: ANISOCYTOSIS 1+; POLYCHROMASIA SLIGHT; TOXIC GRANULATION SLIGHT
[2018-06-06 08:38] LABS: PLATELET COMMENT ADEQUATE; PLATELET LARGE PRESENT
[2018-06-06] MEDS ORDERED: ACETAMINOPHEN WITH CODEINE #3 TABLET ONE (08:44)
[2018-06-06] MEDS: ACETAMINOPHEN WITH CODEINE #3 TABLET PO PRN ×3 (08:50→21:17)
[2018-06-06] MEDS ORDERED: DOCUSATE SODIUM 100 MG CAPSULE ONE (09:10)
[2018-06-06] MEDS ORDERED: FAMOTIDINE 20 MG TABLET ONE (09:10)
[2018-06-06] MEDS ORDERED: FERROUS SULFATE 325 MG TABLET PO ONE (09:10)
[2018-06-06] MEDS ORDERED: SENNOSIDES/DOCUSATE 8.6-50 MG 1 EACH TABLET ONE (09:10)
[2018-06-06] MEDS ORDERED: BENZOCAINE/MENTHOL AEROSOL SPRAY 56 ML ONE (09:11)
[2018-06-06] MEDS: FERROUS SULFATE 325 MG TABLET PO SCH ×2 (09:17→17:06)
[2018-06-06] MEDS: DOCUSATE SODIUM 100 MG CAPSULE PO SCH ×2 (09:17→17:06)
--- NOTE | 2018-06-06 09:44 | Delivery Summary ---
Del Sum A-C Datetime Report Generated by CPN: 06/06/2018 09:44 DELIVERY PERSONNEL DELIVERY PERSONNEL: [id number] Delivery Doctor:: Danielle Salamanca MD Labor and Delivery Nurse:: Melonie Logan RNspring machine operator Nurse:: Gloria Jorge RN Nursery Nurse:: Anabela Rea RN Property Management Specialist/SERVICE PLUMBER: Emerald Adorno, ST MATERNAL INFORMATION Delivery Anesthesia: Epidural Medications After Delivery: Pitocin Bolus-Please Comment Meds After Delivery Comment: Pitocin 20 units in 1 L NS bolusing per order Maternal Complications: None Provider Comments: VMI delivered in [place] presentation with no nuchal cord. Shoulders and body delivered easily with Paul. to maternal abdomen for NRP. Placenta delivered intact spontaneously. Perineal laceration repaired. Good hemostasis. FF at U after cytotec 100mcg placed per rectum. Mother and baby stable upon provider leaving the room LABOR SUMMARY EDC: 06/11/2018 00:00 No. Babies in Womb: 1 Attempted: No Labor Anesthesia: Epidural LABOR INFORMATION Reason for Induction: Indicated by Testing Onset of Labor: 06/05/2018 09:25 Complete Dilatation: 06/06/2018 06:05 Cervical Ripening Agents: Cervidil Oxytocin: Induction Group B Beta Strep: Negative Antibiotics # of Doses: 0 Antibiotics Time of Last Dose: N/A Name of Antibiotic Given: N/A Steroids Given: None Reason Steroids Not Administered: Not Applicable MEMBRANES Membranes Rupture Method: Artificial Rupture of Membranes: 06/05/2018 10:12 Length of Rupture (hr): 20.20 Amniotic Fluid Color: Clear Amniotic Fluid Amount: Small Amniotic Fluid Odor: Normal STAGES OF LABOR Stage 1 hr: 20 Stage 1 min: 40 Stage 2 hr: 0 Stage 2 min: 19 Stage 3 hr: 0 Stage 3 min: 4 Total Time in Labor hr: 21 Total Time in Labor min: 3 VAGINAL DELIVERY Episiotomy: None Laceration #1: Perineal Laceration Extension #1: First Degree Laceration Repair: Yes Laceration Repair Note: superficial perineal laceration repaired in usual fashion with good hemostasis Sponge Count Correct: Yes Sharps Count Correct: Yes CSECTION DELIVERY Primary Indication: N/A Secondary Indication: N/A CSection Incidence: N/A Labor: N/A Elective: N/A CSection Incision: N/A BABY A INFORMATION Infant Delivery Date/Time: 06/06/2018 06:24 Method of Delivery: Vaginal Born in Route : No : N/A Forceps: N/A Vacuum Extraction: N/A Shoulder Dystocia : No PRESENTATION/POSITION BABY A Presentation: Cephalic Cephalic Presentation: Vertex Vertex Position: Left Occipital Anterior Breech Presentation: N/A PLACENTA INFORMATION BABY A Placenta Delivery Time : 06/06/2018 06:28 Placenta Method of Delivery: Spontaneous Placenta Status: Delivered SCORES BABY A Heart Rate 1 min: >100 bpm Resp Effort 1 min: Good Cry Reflex Irritability 1 min: Cough or Sneeze or Pulls Away Muscle Tone 1 min: Active Motion Color 1 min: Body Floral, Extremities Blue Resuscitation Effort 1 min: Tactile Stimulation SCORE 1 MIN: 9 Heart Rate 5 min: >100 bpm Resp Effort 5 min: Good Cry Reflex Irritability 5 min: Cough or Sneeze or Pulls Away Muscle Tone 5 min: Active Motion Color 5 min: Body Floral, Extremities Blue Resuscitation Effort 5 min: N/A SCORE 5 MIN: 9 INFANT INFORMATION BABY A Gestational Age at Delivery: 39.2 Gestational Status: Full Term- 39- 40.6 Weeks Outcome : Liveborn Infant Condition : Stable Sex: Male IDENTIFICATION BABY A Verification Date/Time: 06/06/2018 06:37 ID Band Number: [id number] Mother's Name Verified: Yes RN Verifying Infant: C. Gentilin, RN. M. Desmond, RN WEIGHT/LENGTH BABY A Infant Birthweight (gm): 4729 Weight (lb): 10 Infant Weight (oz): 7 Length (in): 21.75 Infant Length (cm): 55.25 CORD INFORMATION BABY A No. Cord Vessels: 3 Nuchal Cord : N/A Cord Blood Taken: Yes-For Storage (Mom's Blood type +) ASSESSMENT BABY A Infant Complications: None Physical Findings at Delivery: Within Normal Limits Respirations: Appears Normal Elementary Substitute Teacher/ALS Called : No Care By: D. Hayley RN Transferred To: Remains with Mother BABY B INFORMATION : N/A SIGNATURES Signature: with User ID: [email or web address] : I was personally available for consultation and serving as supervising physician for the MLP.
[2018-06-06] MEDS ORDERED: HYDRALAZINE HCL INJ/PF 20 MG/1 ML SDV IV ONE (10:11)
[2018-06-06] MEDS: IBUPROFEN 800 MG TABLET PO SCH ×2 (13:23→21:16)
[2018-06-06] MEDS: GENTAMICIN SULFATE 170 MG in DEXTROSE 5%-WATER 100 ML IV SCH ×2 (13:25→21:05)
[2018-06-06] MEDS: FAMOTIDINE 20 MG TABLET PO SCH (21:18)
[2018-06-07] MEDS: IBUPROFEN 800 MG TABLET PO SCH ×3 (05:11→22:26)
[2018-06-07 07:30] LABS: HEMATOCRIT 29.4 % (36.0-47.0); HEMOGLOBIN 9.9 g/dL (12.0-15.5); MEAN CORPUSCULAR HEMOGLOBIN 29.4 pg (27.0-33.4); MEAN CORPUSCULAR HGB CONC 33.8 g/dL (32.0-36.0); MEAN CORPUSCULAR VOLUME 87 fl (80-97); PLATELET COUNT 154 10^3/uL (150-450); RED BLOOD COUNT 3.38 10^6/uL (3.72-5.28); RED CELL DISTRIBUTION WIDTH 16.5 % (11.5-14.0); WHITE BLOOD COUNT 10.2 10^3/uL (4.0-10.5)
[2018-06-07] MEDS: DOCUSATE SODIUM 100 MG CAPSULE PO SCH ×2 (09:19→17:53)
[2018-06-07] MEDS: FERROUS SULFATE 325 MG TABLET PO SCH ×2 (09:19→17:53)
[2018-06-07] MEDS: FAMOTIDINE 20 MG TABLET PO SCH ×2 (09:19→22:25)
[2018-06-07] MEDS: SENNOSIDES/DOCUSATE 8.6-50 MG 1 EACH TABLET PO SCH (09:19)
[2018-06-07] MEDS: PRENATAL VITAMIN W DHA CAPSULE PO SCH (09:19)
--- NOTE | 2018-06-07 10:46 | PDOC PROGRESS REPORT ---
Subjective-OB Progress Note for:: 06/07/18 Subjective: OOB to nursery, hsb at BS, no c/o, voiding, scant bleeding Physical Exam (OB) Vital Signs: Temp Pulse Resp BP Pulse Ox 97.4 F 90 18 143/99 H 100 06/07/18 07:41 06/07/18 07:41 06/07/18 07:41 06/07/18 07:41 06/07/18 07:41 Intake & Output 06/06/18 06/07/18 06/08/18 06:59 06:59 06:59 Intake Total 404.25 480 Balance 404.25 480 - PIH/Pre-Eclampsia DTR's: 1 + Clonus: Negative Headache: Absent Epigastric Pain: No Visual Changes: No - Lochia Lochia Amount: Small 10-25 ml Lochia Color: Rubra/Red - Abdomen Description: Tender, Soft Hernia Present: No Fundal Description: Firm, Midline Fundal Height: u/u - u/2 Objective-Diagnostic Laboratory: 06/07/18 06:58 06/06/18 07:39 06/07/18 06:58 WBC 10.2 RBC 3.38 L Hgb 9.9 L Hct 29.4 L MCV 87 MCH 29.4 MCHC 33.8 RDW 16.5 H Plt Count 154 Assessment and Plan(PN) - Assessment and Plan (1) Perineal laceration during delivery, delivered Is this a current diagnosis for this admission?: Yes (2) Prolonged artificial rupture of membranes, delivered Is this a current diagnosis for this admission?: Yes (3) Normal vaginal delivery Is this a current diagnosis for this admission?: Yes (4) Macrosomia Is this a current diagnosis for this admission?: Yes (5) Gestational hypertension Qualifiers: Trimester: first trimester Qualified Code(s): O13.1 - Gestational [ -induced] hypertension without significant proteinuria, first trimester Is this a current diagnosis for this admission?: Yes - Time Spent with Patient Time with patient: Less than 15 minutes Medications reviewed and adjusted accordingly: Yes - Disposition Anticipated Discharge: Home Within: within 24 hours
[2018-06-07] MEDS: ACETAMINOPHEN WITH CODEINE #3 TABLET PO PRN (12:35)
[2018-06-07] MEDS: ONDANSETRON 4 MG TAB.RAPDIS PO PRN (13:38)
[2018-06-08] MEDS: IBUPROFEN 800 MG TABLET PO SCH ×2 (06:33→16:28)
[2018-06-08] MEDS: SENNOSIDES/DOCUSATE 8.6-50 MG 1 EACH TABLET PO SCH (09:11)
[2018-06-08] MEDS: FAMOTIDINE 20 MG TABLET PO SCH (09:11)
[2018-06-08] MEDS: FERROUS SULFATE 325 MG TABLET PO SCH (09:11)
[2018-06-08] MEDS: PRENATAL VITAMIN W DHA CAPSULE PO SCH (09:12)
[2018-06-08] MEDS: DOCUSATE SODIUM 100 MG CAPSULE PO SCH (09:12)
--- NOTE | 2018-06-08 10:48 | PDOC PROGRESS REPORT ---
Subjective-OB Progress Note for:: 06/08/18 Subjective: Ready for discharge. Physical Exam (OB) Vital Signs: Temp Pulse Resp BP Pulse Ox 98.1 F 100 18 140/89 H 96 06/07/18 20:38 06/07/18 20:38 06/07/18 20:38 06/07/18 20:38 06/07/18 20:38 Intake & Output 06/07/18 06/08/18 06/09/18 06:59 06:59 06:59 Intake Total 404.25 1030 Balance 404.25 1030 - PIH/Pre-Eclampsia DTR's: 1 + Clonus: Negative Headache: Absent Epigastric Pain: No Visual Changes: No - Lochia Lochia Amount: Scant < 10 ml Lochia Color: Rubra/Red - Abdomen Description: Tender Hernia Present: No Bowel Sounds: Normoactive Flatus Presence: Present Stool: Yes Fundal Description: Firm, Midline Fundal Height: u/u - u/2 Objective-Diagnostic Laboratory: 06/07/18 06:58 06/06/18 07:39 Assessment and Plan(PN) - Time Spent with Patient Medications reviewed and adjusted accordingly: Yes - Disposition Anticipated Discharge: Home
--- NOTE | 2018-06-08 11:06 | PDOC DISCHARGE SUMMARY ---
Final Diagnosis Discharge Date: 06/08/18 - Final Diagnosis (1) Anemia Is this a current diagnosis for this admission?: Yes (2) Gestational hypertension Is this a current diagnosis for this admission?: Yes (3) Macrosomia Is this a current diagnosis for this admission?: Yes (4) Normal vaginal delivery Is this a current diagnosis for this admission?: Yes (5) Perineal laceration during delivery, delivered Is this a current diagnosis for this admission?: Yes (6) Prolonged artificial rupture of membranes, delivered Is this a current diagnosis for this admission?: Yes Discharge Data - Discharge Medication Home Medications: Ferrous Sulfate [Feosol 325 mg Tablet] 325 mg PO BID tablet 06/08/18 Gestational Age: 39.2 wks Reason(s) for Admission: Induction of Labor, PIH Procedures: Ultrasound Intrapartum Procedure(s): Spontaneous Vaginal Delivery Complication(s): Laceration-Perineal Laceration-Degree: 1st - Data Baby 1 Male at 1 minute: 9 at 5 minutes: 9 Weight: 4.734 kg Home with Mother: No Complications: Yes - Bilirubinemia/ tachypnea - Diagnosis Test Laboratory: Temp Pulse Resp BP Pulse Ox 98.1 F 100 18 140/89 H 96 06/07/18 20:38 06/07/18 20:38 06/07/18 20:38 06/07/18 20:38 06/07/18 20:38 06/04/18 06/04/18 06/05/18 16:30 16:42 09:59 RBC 3.93 4.06 Hgb 11.5 L 11.8 L Hct 33.8 L 35.1 L Urine Opiates Screen NEGATIVE 06/06/18 06/07/18 07:39 06:58 RBC 3.93 3.38 L Hgb 11.2 L 9.9 L Hct 33.9 L 29.4 L Urine Opiates Screen - Discharge information/Instructions Discharge Activity: Activity As Tolerated, Balance Activity w/Rest, Pelvic Rest, Slowly Increase Activity, No tub bath Discharge Diet: Regular Disposition: HOME, SELF-CARE Follow up with: [facility] in: 1, Weeks
[2018-06-08 12:19] VITALS: BP 147/89
== END 2018-06-08 17:50 | disposition home or self-care (01) | DRG 807 ==
LOC: LC 16:18 → OBSVTOIN 20:26 → LR 20:26 → 2S 06-06 10:22
PROVIDERS: ADMIT Obstetrics & Gynecology; ATTEND Obstetrics & Gynecology
PROC: 10E0XZZ Delivery of Products of Conception, External Approach (ICD-10-PCS; principal; 2018-06-04)
PROC: 3E033VJ Introduction of Other Hormone into Peripheral Vein, Percutaneous Approach (ICD-10-PCS; 2018-06-04)
PROC: 10907ZC Drainage of Amniotic Fluid, Therapeutic from Products of Conception, Via Natural or Artificial Opening (ICD-10-PCS; 2018-06-04)
PROC: 0HQ9XZZ Repair Perineum Skin, External Approach (ICD-10-PCS; 2018-06-04)
PROC: 4A1HX4Z Monitoring of Products of Conception, Cardiac Electrical Activity, External Approach (ICD-10-PCS; 2018-06-04)
DX: O13.3 Gestational [pregnancy-induced] hypertension without significant proteinuria, third trimester (principal); Z37.0 Single live birth; O36.63X0 Maternal care for excessive fetal growth, third trimester, not applicable or unspecified; O70.9 Perineal laceration during delivery, unspecified; Z3A.39 39 weeks gestation of pregnancy; O99.02 Anemia complicating childbirth; O75.5 Delayed delivery after artificial rupture of membranes
CPT/HCPCS: 36415; 76819; 80053; 80307; 82570; 83615; 84156; 84550; 85025; 85027; 86592; 86850; 86900; 86901; 88307; 94760; J0290; J0360; J1200; J1580; J2300; J2370; J2405; J2590; J3010; J3490; S0119

== ENCOUNTER 2019-02-07 12:32 | Emergency (ER) | payer SELFPAY ==
--- NOTE | 2019-02-07 13:08 | ER Document Report ---
ED Medical Screen (RME) - General Chief Complaint: Back Pain Stated Complaint: BACK PAIN Time Seen by Provider: 02/07/19 13:04 Primary Care Provider: DIRK MCKEON MD [Primary Care Provider] - Follow up as needed Mode of Arrival: Ambulatory Information source: Patient Notes: This 29-year-old female presents emergency department with complaints of thoracic back pain. Reports very sharp hurts when she bends over. Denies trauma. Denies fever vomiting diarrhea. Denies cough chest pain. Patient reports she could crack her back it would help. I have greeted and performed a rapid initial assessment of this patient. A comprehensive ED assessment and evaluation of the patient, analysis of test results and completion of the medical decision making process will be conducted by additional ED providers. Dictation of this chart was performed using voice recognition software; therefore, there may be some unintended grammatical errors. TRAVEL OUTSIDE OF THE [place] IN LAST 30 DAYS: No - Related Data Allergies/Adverse Reactions: morphine Allergy (Verified 02/07/19 12:57) promethazine [From Phenergan] Allergy (Verified 02/07/19 12:57) Past Medical History - General Information source: Patient Last Menstrual Period: IUD LMP LAST MONTH - Social History Chew tobacco use (# tins/day): No - Used to Chew Frequency of alcohol use: None Drug Abuse: None Pulmonary Medical History: Reports: Hx Asthma Neurological Medical History: Reports: Hx Migraine Renal/ Medical History: Denies: Hx Peritoneal Dialysis GI Medical History: Reports: Hx Gastroesophageal Reflux Disease, Hx Irritable Bowel Musculoskeltal Medical History: Reports Hx Musculoskeletal Trauma Traumatic Medical History: Reports: Hx Fractures - Immunizations Immunizations up to date: Yes Hx Diphtheria, Pertussis, Tetanus Vaccination: Yes Physical Exam - Vital signs Vitals: Temp Pulse Resp BP Pulse Ox 98.5 F 103 H 18 135/80 H 100 02/07/19 12:41 02/07/19 12:41 02/07/19 12:41 02/07/19 12:41 02/07/19 12:41 Course - Vital Signs Vital signs: Temp Pulse Resp BP Pulse Ox 98.5 F 103 H 18 135/80 H 100 02/07/19 12:41 02/07/19 12:41 02/07/19 12:41 02/07/19 12:41 10/10/19 12:41 Doctor's Discharge - Discharge Referrals: DIRK MCKEON MD [Primary Care Provider] - Follow up as needed
--- NOTE | 2019-02-07 13:56 | RADIOLOGY REPORT (SQ) ---
EXAM DESCRIPTION: T SPINE AP/LAT COMPLETED DATE/TIME: 02/07/2019 1:35 pm REASON FOR STUDY: PAIN COMPARISON: None. NUMBER OF VIEWS: Two views. TECHNIQUE: AP and lateral radiographic images acquired of the thoracic spine. LIMITATIONS: None. FINDINGS: MINERALIZATION: Normal. ALIGNMENT: Normal. No scoliosis. VERTEBRAE: No fracture or bone lesion. Maintained height, normal segmentation. DISCS: No significant loss of height or significant narrowing. No large osteophytes. HARDWARE: None in the spine. MEDIASTINUM AND SOFT TISSUES: Normal heart size and aortic contour. No soft tissue abnormality. VISUALIZED LUNG ERICKSON: Clear. OTHER: No other significant finding. IMPRESSION: NO SIGNIFICANT RADIOGRAPHIC FINDING IN THE THORACIC SPINE. TECHNICAL DOCUMENTATION: JOB ID: [id number] [employer]- All Rights Reserved Reading location - IP/workstation name: [email or web address]
--- NOTE | 2019-02-07 14:44 | ER Document Report ---
ED Neck/Back Problem - General Chief Complaint: Back Pain Stated Complaint: BACK PAIN Time Seen by Provider: 02/07/19 13:04 Primary Care Provider: DIRK MCKEON MD [ACTIVE STAFF] - Follow up in 1 week Mode of Arrival: Ambulatory TRAVEL OUTSIDE OF THE [place] IN LAST 30 DAYS: No - HPI Notes: 29-year-old female to the emergency department with complaints of upper back pain that began about 2 weeks ago. She states that she has been leaning over at the gym while riding the bike and also been picking up her 23 pound 8-month-old. She states that she has not had a specific injury. She denies any chest pain, shortness of breath, leg swelling, recent immobilization, history of DVT. She is on an IUD. She denies any sarbjit trauma. She denies any falls. She denies any upper extremity numbness or tingling. She denies any upper extremity weakness. She has not taken anything for her pain. - Related Data Allergies/Adverse Reactions: morphine Allergy (Verified 02/07/19 12:57) promethazine [From Phenergan] Allergy (Verified 02/07/19 12:57) Past Medical History - General Information source: Patient Last Menstrual Period: IUD LMP LAST MONTH - Social History Smoking Status: Former Smoker Chew tobacco use (# tins/day): No - Used to Chew Frequency of alcohol use: None Drug Abuse: None Family History: CAD, COPD, CVA, Hypertension, Malignancy Patient has suicidal ideation: No Patient has homicidal ideation: No Pulmonary Medical History: Reports: Hx Asthma Neurological Medical History: Reports: Hx Migraine Renal/ Medical History: Denies: Hx Peritoneal Dialysis GI Medical History: Reports: Hx Gastroesophageal Reflux Disease, Hx Irritable Bowel Musculoskeletal Medical History: Reports Hx Musculoskeletal Trauma Traumatic Medical History: Reports: Hx Fractures - Immunizations Immunizations up to date: Yes Hx Diphtheria, Pertussis, Tetanus Vaccination: Yes Review of Systems - Review of Systems Constitutional: denies: Chills, Fever EENT: No symptoms reported Cardiovascular: denies: Chest pain, Palpitations, Heart racing, Syncope, Dizziness, Lightheaded Respiratory: denies: Cough, Short of breath Gastrointestinal: denies: Abdominal pain, Diarrhea, Nausea, Vomiting Genitourinary: denies: Frequency, Flank pain Musculoskeletal: Back pain Skin: No symptoms reported -: Yes All other systems reviewed and negative Physical Exam - Vital signs Vitals: Temp Pulse Resp BP Pulse Ox 98.5 F 103 H 18 135/80 H 100 02/07/19 12:41 02/07/19 12:41 02/07/19 12:41 02/07/19 12:41 02/07/19 12:41 Interpretation: Normal - General General appearance: Appears well, Alert - HEENT Head: Normocephalic, Atraumatic Eyes: Normal Pupils: PERRL - Respiratory Respiratory status: No respiratory distress Chest status: Nontender Breath sounds: Normal Chest palpation: Normal - Cardiovascular Rhythm: Regular Heart sounds: Normal auscultation Murmur: No - Abdominal Inspection: Normal Distension: No distension Bowel sounds: Normal Tenderness: Nontender Organomegaly: No organomegaly - Back Back: Tender - + mild TTP over the bilateral trapezius and thoracic paraspinal muscles with noted tightness. + slight TTP over the midline thoracic spine. there is no midline TTP over the cervicalor lumbar spine. - Extremities General upper extremity: Normal inspection, Nontender, Normal color, Normal ROM, Normal temperature General lower extremity: Normal inspection, Nontender, Normal color, Normal ROM, Normal temperature, Normal weight bearing. No: Tash's sign - Neurological Neuro grossly intact: Yes Cognition: Normal Orientation: AAOx4 [place] Coma Scale Eye Opening: Spontaneous [place] Coma Scale Verbal: Oriented [place] Coma Scale Motor: Obeys Commands [place] Coma Scale Total: 15 Speech: Normal Motor strength normal: LUE, RUE, LLE, RLE Sensory: Normal - Psychological Associated symptoms: Normal affect, Normal mood - Skin Skin Temperature: Warm Skin Moisture: Dry Skin Color: Normal Course - Re-evaluation Re-evalutation: Thoracic Spine X-Ray 02/07/19 13:06 IMPRESSION: NO SIGNIFICANT RADIOGRAPHIC FINDING IN THE THORACIC SPINE. - Vital Signs Vital signs: Temp Pulse Resp BP Pulse Ox 98.1 F 103 H 16 134/78 H 98 02/07/19 14:58 02/07/19 12:41 02/07/19 14:58 02/07/19 14:58 02/07/19 14:58 - Diagnostic Test Radiology reviewed: Image reviewed, Reports reviewed Discharge - Discharge Clinical Impression: Upper back pain, Strain of thoracic region Condition: Stable Disposition: HOME, SELF-CARE Instructions: Muscle Strain ([facility]) Additional Instructions: FOAM ROLL YOUR BACK. TAKE MOTRIN 800 MG and YOU MAY ALSO USE THE LIDODERM PATCHES. FOLLOW UP WITH YOUR PRIMARY CARE. RETURN IF WORSENING SYMPTOMS. Prescriptions: Lidocaine [Lidoderm 5% (700 mg) Transdermal Patch] 1 patch TP DAILY #30 adh..patch Ibuprofen [Motrin 800 mg Tablet] 800 mg PO Q8H PRN #30 tab PRN Reason: Referrals: DIRK MCKEON MD [ACTIVE STAFF] - Follow up in 1 week
[2019-02-07 14:59] VITALS: BP 134/78
== END 2019-02-07 15:00 | disposition home or self-care (01) ==
LOC: ER 12:32
DX: S29.012A Strain of muscle and tendon of back wall of thorax, initial encounter (principal); X58.XXXA Exposure to other specified factors, initial encounter; M54.9 Dorsalgia, unspecified; J45.909 Unspecified asthma, uncomplicated; Z97.5 Presence of (intrauterine) contraceptive device; Z87.891 Personal history of nicotine dependence; Z88.5 Allergy status to narcotic agent; Z88.8 Allergy status to other drugs, medicaments and biological substances
CPT/HCPCS: 72070; 99283